=== PATIENT | female | born 1985 | race Caucasian/White ===

== ENCOUNTER → 2020-03-25 18:23 | Outpatient (BNVA) | payer OTHER, SELFPAY | PROVIDERS: Family Provider Family Medicine; Visit Provider Family Medicine | DX: Z20.828 Contact with and (suspected) exposure to other viral communicable diseases (principal) | CPT/HCPCS: 87635 ==

== ENCOUNTER 2021-04-12 12:25 | Outpatient (CLI) | payer OTHER, SELFPAY ==
[2021-04-12 12:46] VITALS: BP 128/84; PULSE 68; RESP 16; TEMP 36.6; O2SAT 98
[2021-04-12 13:28] VITALS: BP 108/72; PULSE 67; RESP 16; O2SAT 97
[2021-04-12 14:30] VITALS: BP 121/81; PULSE 63; RESP 16; TEMP 36.5; O2SAT 97
== END 2021-04-12 12:26 | disposition home or self-care (01) ==
LOC: OPS 12:28
PROVIDERS: Visit Provider Nurse Practitioner
DX: U07.1 COVID-19 (principal)
CPT/HCPCS: 96365

== ENCOUNTER → 2021-04-27 16:35 | Outpatient (BNVA) | payer OTHER, SELFPAY | PROVIDERS: Visit Provider Family Medicine | DX: Z00.00 Encounter for general adult medical examination without abnormal findings (principal); Z76.89 Persons encountering health services in other specified circumstances | CPT/HCPCS: 80053; 80061; 82306; 84443; 85025 ==

== ENCOUNTER → 2021-07-19 13:44 | Outpatient (BNVA) | payer OTHER, SELFPAY | PROVIDERS: Visit Provider Registered Nurse Neonatal Intensive Care | DX: Z20.822 Contact with and (suspected) exposure to COVID-19 (principal); Z20.828 Contact with and (suspected) exposure to other viral communicable diseases | CPT/HCPCS: 87635 ==

== ENCOUNTER → 2022-11-21 15:20 | Outpatient (BNVA) | payer OTHER, SELFPAY | PROVIDERS: PCP Family Medicine; Visit Provider Obstetrics & Gynecology | DX: Z12.4 Encounter for screening for malignant neoplasm of cervix (principal) | CPT/HCPCS: 87624 ==

== ENCOUNTER 2023-06-13 10:05 | Outpatient (CLI) | payer OTHER, SELFPAY ==
--- NOTE | 2023-06-13 10:08 | MM_ITS ---
WS: [id number] VIEWS: MLO and CC views both breasts. 3D digital tomosynthesis is also included in this exam. Baseline study Findings: There was no sign of mass, architectural distortion or suspicious calcification in either breast. The re are scattered areas of fibroglandular density Impression: MM/[place] [id number] BI-RADS: 2-Benign finding. FOLLOW-UP: 1 Year Follow-up This mammogram was also analyzed by the Computer Aided Detection System [employer].
== END 2023-06-13 10:06 | disposition home or self-care (01) ==
LOC: RAD 10:05
PROVIDERS: PCP Family Medicine; Visit Provider Obstetrics & Gynecology
DX: Z12.31 Encounter for screening mammogram for malignant neoplasm of breast (principal)
CPT/HCPCS: 77063; 77067

== ENCOUNTER → 2024-03-04 11:37 | Outpatient (BNVA) | payer OTHER, SELFPAY | PROVIDERS: PCP Family Medicine; Visit Provider Nurse Practitioner Women's Health | DX: Z12.4 Encounter for screening for malignant neoplasm of cervix (principal) | CPT/HCPCS: 87624 ==

== ENCOUNTER 2024-06-15 11:06 | Outpatient (CLI) | payer OTHER, SELFPAY ==
--- NOTE | 2024-06-15 | MM_ITS ---
WS: [id number] SCREENING DIGITAL BREAST TOMOSYNTHESIS MAMMOGRAM WITH CAD HISTORY: ANNUAL SCREENING COMPARISON: 06/13/2023 Bilateral CC and MLO with tomosynthesis and synthetic mammography submitted. Computer aided detection analyzed. Breast composition: There are scattered areas of fibroglandular density. New well-circumscribed mass measures 4 x 6 x 5 mm in the lateral mid LEFT breast near 3:00. No additional new mass or calcificati on. MM/MM scr tomosynthesis [id number] IMPRESSION: BI-RADS: 0 - Incomplete: Need additional imaging evaluation. FOLLOW UP: Need Additional Imaging LEFT breast: Spot compression views (CC and MLO). True ML. Ultrasound to follow if abnormality persists.
== END 2024-06-15 11:07 | disposition home or self-care (01) ==
PROVIDERS: PCP Family Medicine; Visit Provider Family Medicine
DX: Z12.31 Encounter for screening mammogram for malignant neoplasm of breast (principal); R92.323 Mammographic fibroglandular density, bilateral breasts; N63.23 Unspecified lump in the left breast, lower outer quadrant
CPT/HCPCS: 77063; 77067

== ENCOUNTER 2024-07-14 10:17 | Outpatient (CLI) | payer OTHER, SELFPAY ==
--- NOTE | 2024-07-14 10:21 | US_ITS ---
WS: [email or web address] ADDITIONAL VIEWS LEFT MAMMOGRAM with tomosynthesis. LEFT BREAST ULTRASOUND HISTORY: N64.9 - Disorder of breast, unspecified COMPARISON: 06/15/2024, 06/13/2023 LEFT MAMMOGRAM: Spot compression views and true ML with tomosynthesis and synthetic mammography. Spot compression views are obtained. Well-circumscribed mass is reidentified best seen on the lateral projection in the ML projection. Mass is in the lateral LEFT breast measuring 5 x 6 x 4 mm and near the 3:00 axis. LEFT BREAST ULTRASOUND 2-D and color Doppler imaging submitted. Simple cyst with well-circumscribed margins in the LEFT breast at 4:00, 5 cm from the nipple. Cyst me asures 0.7 x 0.3 x 0.8 cm. No additional abnormality in the lateral LEFT breast. US/US breast LT complete [id number] IMPRESSION: BI-RADS: 2- Benign FOLLOW UP: 1 Year Follow-up Mass in the LEFT breast corresponds to a benign simple cyst.
--- NOTE | 2024-07-14 10:30 | MM_ITS ---
WS: [email or web address] ADDITIONAL VIEWS LEFT MAMMOGRAM with tomosynthesis. LEFT BREAST ULTRASOUND HISTORY: N64.9 - Disorder of breast, unspecified COMPARISON: 06/15/2024, 06/13/2023 LEFT MAMMOGRAM: Spot compression views and true ML with tomosynthesis and synthetic mammography. Spot compression views are obtained. Well-circumscribed mass is reidentified best seen on the lateral projection in the ML projection. Mass is in the lateral LEFT breast measuring 5 x 6 x 4 mm and near the 3:00 axis. LEFT BREAST ULTRASOUND 2-D and color Doppler imaging submitted. Simple cyst with well-circumscribed margins in the LEFT breast at 4:00, 5 cm from the nipple. Cyst me asures 0.7 x 0.3 x 0.8 cm. No additional abnormality in the lateral LEFT breast. MM/MM diag LT tomosynthesis [id number] IMPRESSION: BI-RADS: 2- Benign FOLLOW UP: 1 Year Follow-up Mass in the LEFT breast corresponds to a benign simple cyst.
== END 2024-07-14 10:18 | disposition home or self-care (01) ==
LOC: RAD 10:19
PROVIDERS: PCP Family Medicine; Visit Provider Nurse Practitioner Women's Health
DX: R92.8 Other abnormal and inconclusive findings on diagnostic imaging of breast (principal); N64.9 Disorder of breast, unspecified; N60.02 Solitary cyst of left breast
CPT/HCPCS: 76641; 77061; G0279

== ENCOUNTER → 2024-11-13 11:43 | Outpatient (BNVA) | payer OTHER, SELFPAY | PROVIDERS: PCP Family Medicine; Visit Provider Nurse Practitioner | DX: Z00.00 Encounter for general adult medical examination without abnormal findings (principal) | CPT/HCPCS: 80053; 85025 ==

== ENCOUNTER 2025-01-10 11:32 | Emergency (ER) | payer OTHER, SELFPAY ==
--- OUTSIDE RECORDS SUMMARY | 2025-01-06 08:31 | XMS_ITS | Encounter Summary ---
Author Organization [facility] Address [address] [place] [address] Care Team Providers Care Steam And Power Superintendent Name Role Phone Unavailable Primary Care Provider Unavailabl e Reason for Visit * Auth/Cert (Routine) Specialty Diagnoses / Procedures Referred By Faith t Referred To Contact Perioperative Diagnoses Morbid (severe) obesity due to excess calories (CMS/HCC) Procedures VA LAPS GSTRC RSTRICTIV PX LONGITUDINAL GASTRECTOMY VA UNLISTED PROCEDURE ABDOMEN PERITONEUM & OMENTUM GASTRECTOMY LONGITUDINAL LAPAROSCOPIC WITH ON Q PAIN PUMP Nic Yanez MD [address] [place] [id number] Phone: tel: fax: [facility] Operating Room [address] [place] [id number] Phone: tel: fax: Referral ID Status Reason Start Date Expiration Date Visits Re quested Visits Authorized [id number] 1 1 Encounter Details Date Type Department Care Team (Latest Contact Info) Description 01/06/2025 8:31 AM CDT - 01/07/2025 3:08 PM CDT Hospital Encounter [facility] Surgical [address] [id number] Nic Yanez MD [address] [place] [phone] Obesity (BMI 35.0-39.9 without comorbidity) Discharge Disposition: Home or Self Care Social History Tobacco Use Types Packs/Day Years Used Date Smoking Tobacco: Never Smokeless Tobacco: Never Tobacco Cessation:Counseling Given: Not Answered Alcohol Use Standard Drinks/Week Comments Not Currently 0 (1 standard drink = 0.6 oz pur e alcohol) Feeling Safe Answer Date Recorded Are you in a relationship wi th someone who hurts you emotionally and/or physically? 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 Gender Identity Not on file Sexual Orientation Not on file documented as of this encounter Last Filed Vital Signs Vital Sign Reading Time Taken Comments Blood Pressure 119/82 01/07/2025 11:00 AM CDT Pulse 66 01/07/2025 11:00 AM CDT Temperature 36.5 C (97.7 F) 01/07/2025 11:00 AM CDT Respiratory Rate 18 01/07/2025 11:00 AM CDT Oxygen Saturation 100% 01/07/2025 11:00 AM CDT Inhaled Oxygen Concentration - - Weight 98.7 kg (217 lb 8 oz) 01/06/2025 2:46 PM CDT Height 162.6 cm (5' 4 ) 01/06/2025 2:46 PM CDT Body Mass Index 37.33 01/06/2025 2:46 PM CDT documented in this encounter Discharge Instructions * Discharge Instructions* Aisha Hayward DNP - 01/06/2025 3:59 PM CDT MEDICATIONS: Zofran Hycet Home Medications: Cetirizine (Zyrtec) 10 mg tablet - may crush, continue as needed Fluticasone Propionate (Flonase) 50 mcg/spry nasal inhaler suspension - nasal spray Do not start vitamins for one week. Start on day #7 when you start your full liquid diet. Start protein water on your first day home. Start protein shakes at the direction of your surgeon. Pain ball: Remove as instructed on SaturJanuary 09, [address] Yanez as scheduled. Follow up with your primary care provider in 5 days for continued medical management. NSAIDs: This includes all over the counter preparations containing a non- steroidal anti-inflammatory agent (i.e.: Motrin, Ibuprofen, Advil, Naprosyn, Aleve, Aspirin and Aspirin containing products, all combination products containing Ibuprofen or Naprosyn) Resume/take at the direction of your surgeon. SIGNS AND SYMPTOMS TO REPORT Contact your health care provider if you experience any of the following symptoms: fever greater than 100.4, redness from incision sites, or unrelieved nausea/vomiting. For Diabetic patients: Blood sugar consistently greater than 180 or less than 70. ACTIVITY Your activity level is: Per direction of surgeon. You may return to work/school once you follow up with your doctor. Weight restriction: less than [address] you are no longer taking pain medication. You may shower. Do not take any baths or submerge in water for 4 weeks or until instructed by your surgeon. DIET Your diet is: clear liquid, advance as instructed in your bariatric diet manual. WOUND CARE For your wound/incision: Shower daily. Notify Dr. Yanez if: There is redness, swelling, or increased pain at incision sites/wounds. Pus is coming from incision sites/wounds. You develop an unexplained oral temperature above 100.4?? F. You notice a foul smell coming from incision sites/wounds. You are unable to tolerate fluids. You have persistent nausea or vomiting. documented in this encounter Medications at Time of Discharge HYDROcodone-acet aminophen 2.5-108 mg/5 mL SolutionIndicati ons:Post-op pain Take 15 mL by mouth every 6 hours as needed for Pain, Severe. Max Daily Amount: 60 mL 300 mL 01/06/2025 ondansetron (ZOFRAN ODT) 4 mg Tablet, Rapid Dissolve Take 1 Tablet (4 mg) by mouth every 8 hours as needed for Nausea. Dissolve tablet on top of tongue, then swallow with saliva. 28 Tablet 01/07/2025 10:00 AM CDT 01/06/2025 cetirizine (ZyrTEC) 10 mg tablet Take 10 mg by mouth 1 time daily as needed for Allergies. fluticasone propionate (FLONASE) 50 mcg/spray [place], Suspension nasal inhaler Administer 2 Sprays in each nostril 1 time daily as needed for Rhinitis. documented as of this encounter Progress Notes * Zion Hunt RN - 01/07/2025 12:45 PM CDT Discharge instructions and contents of discharge education folder were reviewed and discussed with the patient and her sister. Included in that discussion were diet, activity, medications, incision care, removal of the on Q ball, and signs and symptoms of postoperative complications. Patient and her sister were given the opportunity to ask questions. Their questions were answered. * Chang Barry RN - 01/06/2025 8:49 AM CDT Patient has purple gown on. * Ailyn Tao PHARMACIST - 12/25/2024 3:38 PM CDT Bariatric Medication Review Per home medication list viewed 12-25-24 Cetirizine (Zyrtec) 10 mg tablet - may crush Fluticasone Propionate (Flonase) 50 mcg/spry nasal inhaler suspension - nasal spray R Abram Tao documented in this encounter H&P Notes * Nic Yanez MD - 01/06/2025 10:36 [place] [address] History and Physical Patient: Renay Stern : 1985 Date: 01/06/2025 HISTORY OF PRESENT ILLNESS: Patient is a 39 y.o. female scheduled for LVSG for Morbid Obesity. She was seen in the clinic and found to be an appropirate candidate for the procedure. The details of the preop discussion can be found in the clinic notes. Past Surgical History: Procedure Laterality Date HX SECTION x3 HX TUBAL LIGATION Past Medical History: Diagnosis Date Depression Medications Prior to Admission Medication Sig Dispense Refill Last Dose/Taking cetirizine (ZyrTEC) 10 mg tablet Take 10 mg by mouth 1 time daily as needed for Allergies. 01/06/2025Morning fluticasone propionate (FLONASE) 50 mcg/spray [place], Suspension nasal inhaler Administer 2 Sprays in each nostril 1 time daily as needed for Rhinitis. 01/06/2025 Morning No Known Allergies Social History Socioeconomic History Marital status: Spouse name: Not on file Number of children: Not on file Years of education: Not on file Highest education level: Not on file Occupational History Not on file Tobacco Use Smoking status: Never Smokeless tobacco: Never Vaping Use Vaping status: Never Used Substance and Sexual Activity Alcohol use: Not Currently Drug use: Not Currently Sexual activity: Not on file Other Topics Concern Not on file Social History Narrative Not on file Social Drivers of Health Food Insecurity: Not on file Transportation Needs: Not on file Feeling Safe: Not At Risk (01/06/2025) Feeling Safe Patient has indicated abuse: : No Housing Stability: Not on file No family history on file. REVIEW OF SYSTEMS: Per anesthesia notes PHYSICAL EXAM: Heart- no JVD Lungs- no increased work of breathing IMPRESSION: Obesity with comorbidities, good candidate for proposed procedure. PLAN: I discussed in depth with the patient her current clinical situation. Risks of the procedure were discussed in detail and the patient completed the online MOHAMUD program prior to today's procedure. She understands and wishes to proceed with the procedure. All of her questions were answered. Nic Yanez MD documented in this encounter Consult Notes * Aisha Hayward, MARVIN - 01/06/2025 3:53 PM CDTAssociated Order(s): IP CONSULT TO HOSPITALIST Hospitalist Consultation Note Patient Name: Renay Stern [id number] Primary Care Doctor: No primary care provider on file. Requesting Physician: Nic Yanez MD Date of Admission: 01/06/2025 Date of Service: 01/06/2025 Reason for Consultation: Status post laparoscopic vertical sleeve gastrectomy with placement of tunneled abdominal wall catheters x2 secondary to morbid obesity by Dr. Yanez. Hospitalist group was consulted for ongoing medical issues: Depression, postoperative nausea and vomiting, postoperative pain, history of seasonal allergies and general medical exam HPI: Patient is 39 y.o. female patient who is status post laparoscopic vertical sleeve gastrectomy with placement of tunneled abdominal wall catheters x2 secondary to morbid obesity by Dr. Yanez. Hospitalist group was consulted for ongoing medical issues: Depression, postoperative nausea and vomiting, pos toperative pain, history of seasonal allergies and general medical exam Seen while sitting on edge of bed. Family at bedside. Discussed health history and home medicationswith patient. Reports a history of seasonal allergies and uses Zyrtec and Flonase as needed. Reports history of depression that was situational as was overseas serving in the [employer]. Reports C- section x 3 along with a tubal in 2018. Denies any other medical needs or concerns at this time. Denies chest pain shortness of breath or GI upset. Denies tobacco drug and alcohol use. Past Medical History: Diagnosis Date Depression Past Surgical History: Procedure Laterality Date HX SECTION x3 HX TUBAL LIGATION [facility] PX LONGITUDINAL GASTRECTOMY N/A 01/06/2025 GASTRECTOMY LONGITUDINAL LAPAROSCOPIC WITH ON Q PAIN PUMP performed by Nic Yanez MD at [facility] Current Medications: Medications Prior to Admission Medication Sig Dispense Refill Last Dose/Taking cetirizine (ZyrTEC) 10 mg tablet Take 10 mg by mouth 1 time daily as needed for Allergies. 01/06/2025Morning fluticasone propionate (FLONASE) 50 mcg/spray [place], Suspension nasal inhaler Administer 2 Sprays in each nostril 1 time daily as needed for Rhinitis. 01/06/2025 Morning Medication Allergies:No Known Allergies No family history on file. Social History: Social History Tobacco Use Smoking status: Never Smokeless tobacco: Never Substance Use Topics Alcohol use: Not Currently ROS: Constitutional: denies: chills, fever, diaphoresis HEENT: denies: nasal drainage, nasal congestion dysphagia or sore throat Respiratory: denies: cough, or shortness of breath Cardiovascular: denies: chest pain Gastrointestinal/Abdominal: denies: nausea, vomiting. Reports: Abdominal pain 08/10 Genitourinary: denies: discharge, dysuria, frequency, hematuria, pain Musculoskeletal: denies: back pain, joint swelling, muscle pain Skin: denies: dryness, rash Neurological/Psych: denies: headache, numbness, tingling, weakness Physical Exam: BP 118/51 (BP Location: Right arm, Patient Position (BP): Supine) Pulse 83 Temp 97.7 ??F (36.5 ??C) (Oral) Resp 16 Ht 5' 4 (1.626 m) Wt 98.7 kg (217 lb 8 oz) LMP 12/21/2024 SpO2 99% BMI 37.33 kg/m?? Appearance: Morbidly obese, well-appearing, NAD HEENT: Normocephalic, atraumatic, PERRLA Neck: Supple, no lymphadenopathy, no JVD, full ROM Cardiovascular: Regular rate and rhythm, without murmurs, rubs or clicks Pulmonary: Respirations even and unlabored, lung sounds are clear bilaterally GI / : Abdomen soft, mild tenderness, non distended; abdominal incisions well approximated without erythema or drainage, tunneled abdominal wall catheters x2 and on-Q ball present and intact, bowelsounds hypoactive Extremities: No clubbing, cyanosis, or edema MS: Strength/ROM intact, no calf tenderness, SCDs intact Skin: Warm and dry, color normal Neurologic: Alert and oriented times 3 Data Base: Lab: Results for orders placed or performed during the hospital encounter of 01/06/25 (from the past 24 hours) HCG QUALITATIVE, URINE Result Value Ref Range HCG QUAL URINE Negative Negative COLOR UA Yellow Pale to Dark Yellow CLARITY UA Clear Clear Labs reviewed on chart by tag writer done prior to arrival Assessment:PLAN 1. Morbid obesity Status post laparoscopic vertical sleeve gastrectomy with placement of tunneled abdominal wall catheters x2 secondary to morbid obesity by Dr. Yanez. IV fluids/antiemetics/pain control using pain scale/incentive spirometer encourage frequently tolerating ice chips without difficulty/tolerated procedure well 2. DVT/GI prophylaxis Heparin/SCDs/H2 aye 3. Depression No concerns voiced Currently not on any depression medication as depression is considered situational, has resolved 4. Postop nausea/vomiting Administer antiemetic as ordered Continue to monitor 5. Postop pain Administer pain medication as ordered Continue to monitor 6. History of seasonal allergies No complaints Reports home medication of Zyrtec and Flonase Continue Zyrtec and Flonase after discharge as needed 7. General Medical exam As charted above This patient was discussed with Dr. Rubin and he agrees with the above plan. More than 28 minutes spent in the care of the patient today; more than 50% of time was spent in discussion of plan of care, going over lab and test results, expected course of disease, prognosis, counselling, discharge planning, and coordination of care. [facility] We will gladly follow the patient throughout their stay. Aisha Hayward DNP This note was transcribed using Speech Recognition software. May contain unintended grammar and spelling errors. If there are any questions or major errors, please contact me. Cosigned by Ezio Rubin MD at 01/06/2025 6:00 PM CDT documented in this encounter OR Notes * Operative Report - Nic Yanez MD - 01/06/2025 11:47 AM CDT Renay Stern [id number] 01/06/2025 PRE OP DIAGNOSES: Morbid obesity with comorbidities POST OP DIAGNOSES: Morbid obesity with comorbidities INDICATION FOR PROCEDURE: This patient is a pleasant 39 y.o. year-old female suffering from morbid obesity and its comorbidities. After being seen in the clinic, she was found to be an appropriate candidate for a laparoscopicvertical sleeve gastrectomy. OPERATIONS PERFORMED: Laparoscopic vertical sleeve gastrectomy Laparoscopic placement of tunneled abdominal wall catheters x2 SURGEON: Nic Yanez MD NETTING INSPECTOR: None ANESTHESIA: GETA ESTIMATED BLOOD LOSS IN MLS: 50 cc COMPLICATIONS: None SPECIMEN: None PREOPERATIVE NOTE: The contemplated operative procedure, risks, benefits and alternatives to this procedure have been discussed with this patient and/or legal videotape sales representative. The patient and/or legal videotape sales representative acknowledge(s) understanding of the above and consent(s) to the procedure. OPERATIVE FINDINGS: Procedure performed laparoscopically as anticipated preoperatively. No evidence of kinking or twisting of the stomach and there appeared to be no evidence of ongoing oozing or bleeding at the conclusion of the case. OPERATIVE PROCEDURE: The patient was given intravenous antibiotics, sequential stockings, subcutaneous heparin in the preoperative area. After informed consent, the patient was transferred to the operating room, placed in a supine position, and underwent general anesthesia. An oral gastric calibration tube was placed. The abdomen was prepped and draped in the usual sterile fashion using ChloraPrep. Next a timeout wasobtained that revealed the correct patient, position, and laterality of the procedure. The procedure began with entry into the abdominal cavity using an opti-View trocar just to the patient's left of the umbilicus. Pneumoperitoneum thereafter was achieved. A circumferential view of theabdomen revealed no evidence of hepatic or pelvic pathology. Next a right upper quadrant and right periumbilical port were placed under direct laparoscopic vision. The liver was retracted manually throughout the case and the patient was positioned in reverse Trendelenburg position. The greater curvature was devascularized with the ultrasonic dissector and extended to the region of the spleen. The short gastric vessels were carefully taken down as dissection continued to fully mobilize the fundus and the angle of His. Posterior attachments were freed up, the dissection was continued until the majority of the left diaphragmatic santana was well visualized. The pylorus was then identified and marked approximately 4 cm proximally. The greater curvature dissection was extended distally to that area. The sleeve dissection was completed and inspected and found to be hemostatic. Next the gastric calibration tube was advanced under direct visualization into the antrum. The stomach was then divided using the linear stapler with Seam Guard reinforcements. Care was taken near the incisura to minimize encroachment, and the final staple load was fired approximately 1 cm away from the esophagus, to minimize injury to the esophagus. There was a technically good staple line with good hemostasis. The gastric calibration tube was slowly withdrawn, and there was no twisting or kinking of the gastric sleeve. The patient was flattened. There remained good hemostasis. As a separate procedure, the tunneled abdominal wall introducer was placed through a separate incision in the xiphoid region. It was tunneled through the subcutaneous fat, the abdominal wall fascia, into the preperitoneal plane along the right subcostal margin. A catheter was placed, the sheath wasremoved, and the catheter was irrigated to assure its patency. A second tunneled abdominal wall catheter was placed through a separate incision in the subxiphoid region. It was tunneled through the subcutaneous fat, through the abdominal wall fascia into the preperitoneal plane along the left subcostal margin. A catheter was placed, the sheath was removed, and the catheter was irrigated to assureits patency. Both catheters had good patency, they were secured to the skin with Dermabond, Steri-Strips, and Tegaderm. Both catheters were placed under direct laparoscopic visualization. Next, The remnant stomach was then removed under direct vision. The removed stomach was inspected and found to be without gross abnormality. There was no leakage or spillage within the abdomen. The specimen delivery site was closed with an 0 Vicryl suture using a suture passer. Then the pneumoperitoneum was released, as the trocars were removed, and there was no bleeding. The wound was irrigated, there was good hemostasis, and the skin edges were approximated using interrupted subcutaneous subcuticular 4-0 PDS suture. Dermabond was applied. The patient tolerated the procedure well, there were no complications, the patient was transferred to the recovery room awake and in stable condition. * Esme-OP - Leena Martin RN - 01/06/2025 10:42 AM CDT IDENTIFIED VERBALLY/WRIST BAND AND PER DATE. PROCEDURE VERIFIED AND CONSENT NOTED. SEEN PER SURGEON. TO OR PER CART. TRANSFERRED TO OR TABLE PER SELF. POSITIONED FOR SAFETY AND COMFORT. TIME OUT AND FIRE SAFETY DONE. * Esme-OP - Nissa Mobley RN - 12/25/2024 10:18 AM CDT THINGS TO REMEMBER ABOUT YOUR PROCEDURE ARRIVAL DATE AND TIME: 01-06-25 at time given by md office ANTIBACTERIAL SOAP SHOWER one the evening before procedure and one the morning of procedure are ideal to help reduce the risk of post-operative infections. Apply the soap from the neck down. DIET/FLUID INSTRUCTIONS: FOLLOW CLEAR LIQUID DIET INSTRUCTED BY BARIATRIC OFFICE. NOTHING TO DRINK AFTER MIDNIGHT! FAILURE TO FOLLOW COULD MEAN CANCELLATION. No Gum, candy or tobacco/vape products day of procedure! Per anesthesia protocol, pt. instructed not to consume medical or recreational marijuana, CBD or THC containing products for 24 hours prior to procedure. Procedure will be cancelled by anesthesia, ifproducts are consumed day of procedure. MORNING OF PROCEDURE Enter at the main entrance at [facility] and go to the registration desk. They will then escort you to the appropriate location. Wear loose fitting clothes the day of surgery. Do not wear contact lenses. No jewelry or body piercings. Bring overnight bag but leave in the car. Do not use adhesive on your dentures. Do not wear makeup or false eyelashes per anesthesia Leave valuables at home (money, credit cards and jewelry) Bring a copy of any legal papers (guardianship papers, Durable Power of Plastics Fabricator), photo ID and insurance cards DISCHARGE If you are having outpatient procedure, surgery or a cardiac catheterization procedure a responsible adult 18 and over must be available to drive you home and stay with you for 24 hours afterwards. (please arrange this prior to admission) MEDICATIONS Pre-Surgery Instructions: follow md instructions Medication Instructions cetirizine (ZyrTEC) 10 mg tablet May take am of surgery if needed fluticasone propionate (FLONASE) 50 mcg/spray [place], Suspension nasal inhaler May use am of surgeryif needed IF YOU HAVE QUESTIONS: Call [phone] from 8:00 a.m. To 4:30 p.m. Saturday through Saturday. If you need to cancel day of procedure or have questions day of procedure, you can call [phone], 05:30 am-2:00 pm Saturday through Saturday (The above instructions have been discussed with the patient or their videotape sales representative and they have voiced understanding) documented in this encounter Miscellaneous Notes * Care Plan - Rebecca Juan RN - 01/07/2025 10:10 AM CDT Problem: Discharge Planning Goal: Identify discharge needs upon admission and through discharge Description: Outcome: Progressing Clinical documentation reviewed. Comprehensive Discharge Planning Risk Assessment was completed. Documentation Related to CDPA score CDPA Documentation Ambulation: independent Transferring: independent Toileting: independent Bathing: independent Dressing: independent Eating: independent Communication: understands/communicates w/o difficulty Weight-Bearing Status: no weight-bearing restrictions Living Arrangements: Lives with spouse/significant other Total Score of 9 or below does not identify immediate needs for discharge. CDPA Risk Score Total Score: 0 Criteria that do not apply: Self-reported walking limitation Disability Age Prior Living Status Please place consult if needs for discharge are identified. Care Management will continue to follow for discharge planning. Post op day 1 Laparoscopic vertical sleeve gastrectomy Laparoscopic placement of tunneled abdominal wall catheters x2. Self pay: received elective surgery and made payment arrangement prior to the admission/surgery. CHARIS Brian, RN, Probation And Parole Officer [facility] Care Management * Care Plan - Francisca Hi RN - 01/07/2025 6:44 AM CDT Shift Summary Acetaminophen was administered at 11:13 PM. 200 mL of oral intake was recorded at 11:49 PM. No pain or discomfort was reported throughout the shift. Overall, the patient maintained a stable condition with no significant changes in comfort level. Verbalizes/displays acceptable comfort level or baseline comfort level: No pain or discomfort was reported throughout the shift, and acetaminophen was administered at 11:13 PM. Achieve optimal gastrointestinal function by discharge or maintain baseline function: Intermittent nausea and gas discomfort were noted initially, but passing flatus was reported later in the shift. * Treatment Plan - Francisca Hi RN - 01/07/2025 6:21 AM CDT MW EUNICE Adult Intravascular Catheter Flush Protocol [facility] Approved by: [facility] Chief Nursing Officers, [facility] Medical Staff Services, [facility] Nursing Practice [place], [facility] Pharmacy and Therapeutics Committee Approval Date: 12/17/2024 Nursing Orders: Peripheral IV and Midlines Sodium chloride 0.9% (normal saline) flush 10 mL every 12 hours when locked or not in use Sodium chloride 0.9% (normal saline) flush 10 mL PRN before and after medication administration or to verify line patency Flush Bag Sodium chloride 0.9% (normal saline) to administer 25 mL with IVPB at the IVPB rate PRN Flush Bag Dextrose 5% (D5W) (for drugs incompatible with normal saline) to administer 25 mL wi IVPB at the IVPB rate PRN. PICC, Implanted PORT, or Central Lines (CVC, Sheath/Introducer, 3rd lumen of Hemodialysis catheter) when in use or for locking Sodium chloride 0.9% (normal saline) flush 10 mL per lumen every 12 hours when locked or not in use Sodium chloride 0.9% (normal saline) flush 10 mL per lumen after each use and PRN before and after medication administration or to verify line patency Flush Bag Sodium chloride 0.9% (normal saline) to administer 25 mL with IVPB at the IVPB rate PRN Flush Bag Dextrose 5% (D5W) (for drugs incompatible with normal saline) to administer 25 mL with IVPB at the IVPB rate PRN Transducers - Hemodynamic Pressure Monitoring Arterial Catheter, Pulmonary Artery Catheter, Central Venous Pressure, Intra-Aortic Balloon Pump Sodium chloride 0.9% (normal saline) to infuse continuously at 3 mL/hr via pressure bag @ 300mmHg * Treatment Plan - Chio Castañeda RN - 01/06/2025 8:39 PM CDT Initiate this protocol in place of provider order or pathway order for vital sign frequency while patient is admitted to Medical/Surgical unit. Protocol is active in Medical/Surgical Units only. Exclusions: Post-operative/procedure vitals signs Sepsis Bundle or Code Hour One Blood administration and vital signs MACHINE FEEDER medication administration Per nurse's discretion based on patient's condition. Clinical [place] Withdrawal Assessment (CIWA) patients Clinical Opiate Withdrawal Scale Rule out CVA patients Nursing Communication: If NEWS2 score is less than or equal to 4, two hours prior to 0001, nursing will hold the standard vital signs between 2300 and 0400. Standard Vital Signs will resume at 0400. * Care Plan - Adela You RN - 01/06/2025 3:38 PM CDT Shift Summary Abnormal blood pressure and temperature were recorded in the late morning, but both improved by early afternoon. Continuous nausea and emesis were noted in the early afternoon, with antiemetic administration leading to some improvement. Pain in the abdomen region decreased after interventions, with the patient eventually denying pain or discomfort. The patient was unable to eat and experienced intermittent nausea and abdominal pain by the end of the shift. Overall, the patient's vitals showed improvement, but gastrointestinal symptoms persisted. Verbalizes/displays acceptable comfort level or baseline comfort level: Pain in the abdomen region decreased from a rating of 5 to 3 after interventions including warm application and medication, with the patient eventually denying pain or discomfort. Achieve optimal gastrointestinal function by discharge or maintain baseline function: Nausea was continuous but improved after administration of antiemetics, although intermittent nausea and abdominal pain persisted. * Care Plan - Azalea Hernandez RN - 01/06/2025 1:03 PM CDT Potential for nausea and vomiting related to surgical intervention and/or anesthesia. Interventions: Assess for nausea, vomiting.Administer measures to reduce and comfort pt (ie: encourage slow deep breathing, cool cloth to forehead, gradual position changes). Administer medication ifordered by physician. Expected outcome:Verbalization of decreased nausea and reduced or absent episodes of vomiting. Outcome met: Pt denies nausea. * Care Plan - Chang Barry RN - 01/06/2025 8:49 AM CDT Knowledge deficit related to procedure/environment Interventions: Assess learning needs and willingness to learn; give clear, concise explanations of the environment and sequence of events surrounding the periop experience; address patient/family questions and concerns; provide teaching as indicated, provide teaching related to postoperative pain assessment utilizing pain scales Expected Outcome: Patient verbalizes or demonstrates awareness/understanding of surgery and perioperative experience Outcome Met: Discussed pre op protocols, questions answered, verbalized understanding. documented in this encounter Plan of Treatment Not on file documented as of this encounter Procedures Procedure Name Priority Date/Time Associated Diagnosis Comments CBC WITHOUT DIFFERENTIAL Routine 01/07/2025 5:59 AM CDT BASIC METABOLIC PANEL Routine 01/07/2025 5:59 AM CDT VA LAPS GSTRC RSTRICTIV PX LONGITUDINAL GASTRECTOMY 01/06/2025 10:30 AM CDT Morbid (severe) obesity due to excess calories ([facility]) Case Notes ON Q PAIN PUMP CODE 18 [id number] HCG QUALITATIVE, URINE Stat 01/06/2025 8:57 AM CDT documented in this encounter Results * (ABNORMAL) BASIC METABOLIC PANEL (01/07/2025 5:59 AM CDT) SODIUM 137 136 - 145 mmol/L 01/07/2025 7:06 AM T [facility] [place] POTASSIUM 3.8 3.5 - 5.1 mmol/L 01/07/2025 7:06 AM T [facility] [place] CHLORIDE 105 98 - 107 mmol/L 01/07/2025 7:06 AM T [facility] [place] CO2 17(L) 22 - 29 mmol/L 01/07/2025 7:06 AM T [facility] [place] CALCIUM 8.5(L) 8.6 - 10.0 mg/dL 01/07/2025 7:06 AM T [facility] [place] BUN 4(L) 6 - 20 mg/dL 01/07/2025 7:06 AM T [facility] [place] CREATININE 0.67 0.51 - 0.95 mg/dL 01/07/2025 7:06 AM T [facility] [place] GLUCOSE 129(H) 74 - 99 mg/dL 01/07/2025 7:06 AM [facility] GFR >60 >=60 mL/min/1.7 3 sq meter 01/07/2025 7:06 AM [facility] Comment:eGFR calculated with 2020 CKD-EPI equation. Vegetarian diet, extremely high or low muscle mass, and may affect results. Cystatin C with Glomerular Filtration Rate is a suitable alternative for these patients. ANION GAP 15 5 - 15 mmol/L 01/07/2025 7:06 AM [facility] Blood Venipuncture / Unknown 01/07/2025 5:59 AM CDT 01/07/2025 6:37 AM CDT us Nic Yanez MD CHEMISTRY ORDERABLES Final Resul t [facility] CLIA # [id number] [facility] [address] [place] [address] * (ABNORMAL) CBC WITHOUT DIFFERENTIAL (01/07/2025 5:59 AM CDT) WBC 10.0 4.0 - 11.0 K/uL 01/07/2025 6:30 AM [facility] RBC 4.20 4.20 - 5.40 M/uL 01/07/2025 6:30 AM [facility] HEMOGLOBIN 11.7(L) 11.9 - 15.1 g/dL 01/07/2025 6:30 AM [facility] HEMATOCRIT 36.0(L) 38.0 - 47.0 % 01/07/2025 6:30 AM [facility] MCV 85.7 80.0 - 98.0 fL 01/07/2025 6:30 AM [facility] MCH 27.9 26.0 - 34.0 pg 01/07/2025 6:30 AM [facility] MCHC 32.5 31.0 - 37.0 g/dL 01/07/2025 6:30 AM [facility] PLATELETS 224 150 - 400 K/uL 01/07/2025 6:30 AM CDT [facility] [place] MPV 11.5 8.5 - 12.5 fL 01/07/2025 6:30 AM CDT [facility] [place] RDW 13.4 11.5 - 14.5 % 01/07/2025 6:30 AM CDT [facility] [place] RDW-STDEV 41.9 34.0 - 54.0 fL 01/07/2025 6:30 AM CDT [facility] [place] Blood Venipuncture / Unknown 01/07/2025 5:59 AM CDT 01/07/2025 6:27 AM CDT Nic Yanez MD HEMATOLOGY ORDERABLES Final Resu lt [facility] [place] CLIA # [id number] [address] [place] [address] * HCG QUALITATIVE, URINE (01/06/2025 8:57 AM CDT) HCG QUAL URINE Negative Negative 01/06/2025 9:06 AM CDT [facility] [place] COLOR UA Yellow Pale to Dark Yellow 01/06/2025 9:06 AM CDT [facility] [place] CLARITY UA Clear Clear 01/06/2025 9:06 AM CDT [facility] [place] Urine URINE SPECIMEN OBTAINED BY CLEAN CATCH PROCEDURE / Unknown Collection / Unknown 01/06/2025 8:57 AM CDT 01/06/2025 9:02 AM CDT Narrative [facility] [place] - 01/06/2025 9:06 AM CDT hCG sensitive to as little as 20 mIU/mL for urine Nic Yanez MD URINE ORDERABLES Final Result [facility] [employer] [facility] [place] CLIA # [id number] [address] [place] [address] documented in this encounter Visit Diagnoses Diagnosis Obesity (BMI 35.0-39.9 without comorbidity)- Primary Obesity, unspecified Post-op pain Other acute postoperative pain General medical exam Unspecified general medical examination Depression Depressive disorder, not elsewhere classified Postoperative nausea and vomiting Nausea with vomiting Postoperative pain Other acute postoperative pain History of seasonal allergies Other allergy, other than to medicinal agents documented in this encounter Administered Medications Inactive Administered Medications - up to 3 most recent administrations Medication Order MAR Action Action Date Dose Rate Site acetaminophen (OFIRMEV) 10 mg/mL injection 1,000 mg 1,000 mg, IV, ONE TIME ONLY, 1 dose, On Sat01/06/25 at 2300, Routine, Post-op - Floor New 01/06/2025 11:13 PM CDT 1,000 mg 400 mL/hr acetaminophen (OFIRMEV) 10 mg/mL injection 1,000 mg 1,000 mg, IV, ONE TIME ONLY, 1 dose, On Sat01/06/25 at 1700, Routine, Post-op - Floor 01/06/2025 5:05 PM CDT 1,000 mg 400 mL/hr BUPivacaine PF (SENSORCAINE MPF) 5 mg/mL (0.5%) 270 mL single fixed rate On-Q pump Infiltration, CONTINUOUS, Starting on Sat01/06/25 at 1030, Until Sat01/07/25 at 1723, 270 mL, Routine, Pre-op, PUMP USE: Incisional Infiltration, FILL CAPACITY: 270-335 mL, LUMEN QTY: Dual Lumen, RATE: ALL OPTIONS EXCEED MAX RECOMMENDED RATE: EXCEED MAX RATE, SPECIFY RATE: 2 mL/hr/lumen (4 mL/hr total) 01/06/2025 12:00 PM CDT 4 mL/hr 4 mL/hr ceFAZolin (ANCEF,KEFZOL) 2,000 mg in sodium chloride 0.9% 50 mL IVPB (MBP) 2,000 mg, IV, POST-PROCEDURE Q 8 HOURS, 2 doses, First dose on Sat01/06/25 at 1845, Last dose on Sat01/07/25 at 0245, Routine, Post-op - Floor, Antibiotic Indication: Surgical prophylaxis New 01/07/2025 2:15 AM CDT 2,000 mg 118 mL/hr 01/06/2025 6:04 PM CDT 2,000 mg 118 mL/hr diphenhydrAMINE (BENADRYL) injection 12.5 mg 12.5 mg, IV, POST-PROCEDURE ONCE PRN, 1 dose, Starting on Sat01/06/25 at 1000, Until Sat01/06/25 at 1338, Nausea/Emesis, Routine, PACU Given 01/06/2025 1:38 PM CDT 12.5 mg famotidine PF (PEPCID) 20 mg/2 mL injection 20 mg 20 mg, IV, PRE-PROCEDURE ONCE, 1 dose, Starting on Sat01/06/25 at 0837, Until Sat01/06/25 at 0920, Stat, Pre-op Given 01/06/2025 9:20 AM CDT 20 mg famotidine PF (PEPCID) 20 mg/2 mL injection 20 mg 20 mg, IV, TWO TIMES DAILY, First dose on Sat01/06/25 at 2100, Until Discontinued, Routine, Post-op - Floor Given 01/07/2025 8:26 AM CDT 20 mg Given 01/06/2025 8:30 PM CDT 20 mg heparin injection 5,000 Units 5,000 Units, subCUT, PRE-PROCEDURE ONCE, 1 dose, Starting on Sat01/06/25 at 0837, Until Sat01/06/25 at 0859, Stat, Pre-op Given 01/06/2025 8:59 AM CDT 5,000 Units Abdomen, Right Lower Quadrant heparin injection 5,000 Units 5,000 Units, subCUT, EVERY 8 HOURS, First dose on Pina 01/07/25 at 0230, Until Discontinued, Routine, Post-op - Floor Given 01/07/2025 4:33 AM CDT 5,000 Units Abdominal Tissue lactated ringers bolus solution 2,000 mL 2,000 mL, IV, ONE TIME ONLY, 1 dose, On Sat01/06/25 at 0845, at 2,000 mL/hr, Administer over 60 Minutes, Stat, Pre-op New Bag 01/06/2025 9:28 AM CDT 2,000 mL 2000 mL/hr metoclopramide (REGLAN) 5 mg/mL injection 10 mg 10 mg, IV, EVERY 6 HOURS PRN, Starting on Sat01/06/25 at 1348, Until [place] 01/07/25 at 1723, Nausea/Emesis, Routine, Post-op - Floor Given 01/06/2025 1:52 PM CDT 10 mg metroNIDAZOLE (FLAGYL) IVPB 500 mg 500 mg, IV, POST-PROCEDURE Q 8 HOURS, 2 doses, First dose on Sat01/06/25 at 1845, Last dose on Sat01/07/25 at 0245, Routine, Post-op - Floor, Antibiotic Indication: Surgical prophylaxis New 01/07/2025 2:47 AM CDT 500 mg 100 mL/hr 01/06/2025 6:49 PM CDT 500 mg 100 mL/hr naloxone (NARCAN) 0.4 mg/mL injection 0.1-0.4 mg 0.1-0.4 mg, IV, SEE ADMIN INSTRUCTIONS, Starting on Sat01/06/25 at 0958, Until Sat01/07/25 at 1723, Routine, PACU ondansetron (ZOFRAN) 4 mg/2 mL injection 4 mg 4 mg, IV, EVERY 6 HOURS PRN, Starting on Sat01/06/25 at 1435, Until Sat01/07/25 at 1723, Nausea/Emesis, Routine, Post-op - Floor Given 01/07/2025 1:29 PM CDT 4 mg Given 01/07/2025 7:42 AM CDT 4 mg Given 01/06/2025 5:05 PM CDT 4 mg potassium CHLORIDE 20 mEq in dextrose 5 % - sodium chloride 0.45 % 1,000 mL infusion IV, at 150 mL/hr, CONTINUOUS, Starting on Sat01/06/25 at 1445, Until Sat01/07/25 at 1723, Routine, Post-op - Floor New 01/07/2025 7:37 AM CDT 150 mL/hr 01/06/2025 11:11 PM CDT 150 mL/hr 01/06/2025 2:44 PM CDT 150 mL/hr pyridoxine (VITAMIN B6) tablet 50 mg 50 mg, Oral, PRE-PROCEDURE ONCE, 1 dose, Starting on Sat01/06/25 at 1007, Until Sat01/06/25 at 1008, Routine Given 01/06/2025 10:08 AM CDT 50 mg scopolamine (TRANSDERM-SCOP) 1 mg/72 hr transdermal patch 1 Patch 1 Patch, Transdermal, PRE-PROCEDURE ONCE, 1 dose, Starting on Sat01/06/25 at 0837, Until [place] 01/07/25 at 1723, Stat, Pre-op Applied 01/06/2025 8:58 AM CDT 1 Patch Ear, Right documented in this encounter Active and Recently Administered Medications Times are shown in CDT. Scheduled Medication Order 01/05/2025 01/06/2025 01/07/2025 acetaminophen (OFIRMEV) 10 mg/mL injection 1,000 mg (COMPLETED) 1,000 mg, IV, ONE TIME ONLY, 1 dose, On Sat01/06/25 at 2300, Routine, Post-op - Floor 2313 (New Bag - Provider: Kami Watkins, ASHLIE)2328 (Stopped - Provider: Kami Watkins RN) acetaminophen (OFIRMEV) 10 mg/mL injection 1,000 mg (COMPLETED) 1,000 mg, IV, ONE TIME ONLY, 1 dose, On Sat01/06/25 at 1700, Routine, Post-op - Floor 1705 (New Bag - Provider: Adela You RN)1720 (Stopped - Provider: Adela You RN) ceFAZolin (ANCEF,KEFZOL) 2,000 mg in sodium chloride 0.9% 50 mL IVPB (MBP) (COMPLETED)(Linked Group 1) 2,000 mg, IV, POST-PROCEDURE Q 8 HOURS, 2 doses, First dose on Sat01/06/25 at 1845, Last dose on Pina 01/07/25 at 0245, Routine, Post-op - Floor, Antibiotic Indication: Surgical prophylaxis 1804 (New Bag - Provider: Adela You RN)1834 (Stopped - Provider: Adela You RN) 0215 (New Bag - Provider: Francisca Hi, ASHLIE)0245 (Stopped - Provider: Francisca Hi, ASHLIE) ceFAZolin (ANCEF,KEFZOL) vial 2,000 mg (COMPLETED) 2,000 mg (2 Gram), IV, PRE-PROCEDURE ONCE, 1 dose, Starting on Sat01/06/25 at 0837, Until Sat01/06/25 at 1059, Stat, Pre-op, Antibiotic Indication: Surgical prophylaxis 1054 (Given - Provider: Aby Suarez CRNA)1059 (Stopped - Provider: Aby Suarez CRNA) famotidine PF (PEPCID) 20 mg/2 mL injection 20 mg (COMPLETED) 20 mg, IV, PRE-PROCEDURE ONCE, 1 dose, Starting on Sat01/06/25 at 0837, Until Sat01/06/25 at 0920, Stat, Pre-op 0920 (Given - Provider: Chang Barry RN) famotidine PF (PEPCID) 20 mg/2 mL injection 20 mg 20 mg, IV, TWO TIMES DAILY, First dose on Sat01/06/25 at 2100, Until Discontinued, Routine, Post-op - Floor 2030 (Given - Provider: Kami Watkins, ASHLIE) 0826 (Given - Provider: Niki Bautista, ASHLIE) heparin injection 5,000 Units (COMPLETED) 5,000 Units, subCUT, PRE-PROCEDURE ONCE, 1 dose, Starting on Sat01/06/25 at 0837, Until Sat01/06/25 at 0859, Stat, Pre-op 0859 (Given - Provider: Chang Barry RN) heparin injection 5,000 Units 5,000 Units, subCUT, EVERY 8 HOURS, First dose on Sat01/07/25 at 0230, Until Discontinued, Routine, Post-op - Floor 0433 (Given - Provid er: Francisca Hi RN)1300 (Refused - Provider: Niki Bautista RN) lactated ringers bolus solution 2,000 mL (COMPLETED) 2,000 mL, IV, ONE TIME ONLY, 1 dose, On Sat01/06/25 at 0845, at 2,000 mL/hr, Administer over 60 Minutes, Stat, Pre-op 0928 (New Bag - Provider: Chang Barry RN)1028 (Stopped - Provider: Azalea Hernandez RN) metroNIDAZOLE (FLAGYL) IVPB 500 mg (COMPLETED) 500 mg, IV, PRE-PROCEDURE ONCE, 1 dose, Starting on Sat01/06/25 at 0837, Until Sat01/06/25 at 1150, Stat, Pre-op, Antibiotic Indication: Surgical prophylaxis 1050 (Given - Provider: Aby Suarez CRNA)1150 (Stopped - Provider: Aby Suarez CRNA) metroNIDAZOLE (FLAGYL) IVPB 500 mg (COMPLETED)(Linked Group 1) 500 mg, IV, POST-PROCEDURE Q 8 HOURS, 2 doses, First dose on Sat01/06/25 at 1845, Last dose on Sat01/07/25 at 0245, Routine, Post-op - Floor, Antibiotic Indication: Surgical prophylaxis 1848 (New Bag - Provider: Adela You RN)1948 (Stopped - Provider: Kami Watkins, ASHLIE) 024 (New Bag - Provider: Francisca Hi, ASHLIE)0347 (Stopped - Provider: Francisca Hi, ASHLIE) naloxone (NARCAN) 0.4 mg/mL injection 0.1-0.4 mg 0.1-0.4 mg, IV, SEE ADMIN INSTRUCTIONS, Starting on Sat01/06/25 at 0958, Until Pina 01/07/25 at 1723, Routine, PACU pyridoxine (VITAMIN B6) tablet 50 mg (COMPLETED) 50 mg, Oral, PRE-PROCEDURE ONCE, 1 dose, Starting on Sat01/06/25 at 1007, Until Sat01/06/25 at 1008, Routine 1008 (Given - Provider: Golden Valencia MD)1015 (Canceled Entry - Provider: Azalea Hernandez RN) scopolamine (TRANSDERM-SCOP) 1 mg/72 hr transdermal patch 1 Patch 1 Patch, Transdermal, PRE-PROCEDURE ONCE, 1 dose, Starting on Sat01/06/25 at 0837, Until Pina 01/07/25 at 1723, Stat, Pre-op 0858 (Applied - Provider: Chang Barry RN) 1508 (Due: Removed - Provider: PROVIDER, DISCHARGE PATIENT - Comment: Time automatically adjusted from order being discontinued) Continuous Medication Order 01/05/2025 01/06/2025 01/07/2025 BUPivacaine PF (SENSORCAINE MPF) 5 mg/mL (0.5%) 270 mL single fixed rate On-Q pump Infiltration, CONTINUOUS, Starting on Sat01/06/25 at 1030, Until Pina 01/07/25 at 1723, 270 mL, Routine, Pre-op, PUMP USE: Incisional Infiltration, FILL CAPACITY: 270-335 mL, LUMEN QTY: Dual Lumen, RATE: ALL OPTIONS EXCEED MAX RECOMMENDED RATE: EXCEED MAX RATE, SPECIFY RATE: 2 mL/hr/lumen (4 mL/hr total) 1200 (New Bag - Provider: Azalea Hernandez RN) 1723 (Due: Order Ending - Provider: PROVIDER, DISCHARGE PATIENT - Comment: [Order ends at this time. Document the following action when infusion is complete: Stopped]) lactated ringers infusion (CANCELED) IV, at 125 mL/hr, PRE-PROCEDURE CONTINUOUS, Starting on Sat01/06/25 at 0845, Until Sat01/06/25 at 1435, Stat, Pre-op 1042 (New Bag - Provider: Aby Suarez CRNA)1151 (New Bag - Provider: Aby Suarez CRNA - Comment: bag 3)1156 (Fluid Volume - Provider: Aby Suarez CRNA)1430 (Stopped - Provider: Azalea Hernandez, RN) potassium CHLORIDE 20 mEq in dextrose 5 % - sodium chloride 0.45 % 1,000 mL infusion IV, at 150 mL/hr, CONTINUOUS, Starting on Sat01/06/25 at 1445, Until Pina 01/07/25 at 1723, Routine, Post-op - Floor 1444 (New Bag - Provider: Andra Costa RN)2311 (New Bag - Provider: Kami Watknis RN) 0737 (New Bag - Provider: Niki Bautista, ASHLIE)1723 (Due: Order Ending - Provider: PROVIDER, DISCHARGE PATIENT - Comment: [Order ends at this time. Document the following action when infusion is complete: Stopped]) PRN Medication Order 01/05/2025 01/06/2025 01/07/2025 BUPivacaine PF (SENSORCAINE MPF) 5 mg/mL (0.5%) injection (CANCELED) INTRA-PROCEDURE PRN, Starting on Sat01/06/25 at 1119, Until Sat01/06/25 at 1157, Routine, Intra-op 1119 (Given - Provider: Nic Yanez MD) diphenhydrAMINE (BENADRYL) injection 12.5 mg (COMPLETED) 12.5 mg, IV, POST-PROCEDURE ONCE PRN, 1 dose, Starting on Sat01/06/25 at 1000, Until Sat01/06/25 at 1338, Nausea/Emesis, Routine, PACU 1338 (Given - Provider: Azalea Hernandez, ASHLIE) HYDROcodone-acetaminophen 2.5-108 mg/5 mL oral solution 15 mL 15 mL (7.5 mg), Oral, EVERY 4 HOURS PRN, Starting on Sat01/07/25 at 0500, Until Sat01/07/25 at 1723, Pain (See admin instructions), Routine, Post-op - Floor HYDROcodone-acetaminophen 2.5-108 mg/5 mL oral solution 15 mL 15 mL (7.5 mg), Oral, EVERY 4 HOURS PRN, Starting on Sat01/07/25 at 0500, Until Sat01/07/25 at 1723, Pain (See admin instructions), Routine, Post-op - Floor HYDROmorphone (PF) (DILAUDID) injection 0.3 mg 0.3 mg, IV, EVERY 4 HOURS PRN, Starting on Sat01/06/25 at 1435, Until Sat01/07/25 at 1723, Pain (See admin instructions), Routine, Post-op - Floor HYDROmorphone (PF) (DILAUDID) injection 0.6 mg 0.6 mg, IV, EVERY 30 MINUTES PRN, Starting on Sat01/06/25 at 1435, Until Sat01/07/25 at 1723, Pain (See admin instructions), Routine, Post-op - Floor ketorolac (TORADOL) injection 10 mg 10 mg, IV, EVERY 6 HOURS PRN, Starting on Sat01/06/25 at 1435, Until Sat01/07/25 at 1434, Other (See Comment), Cramping or aching pain, Routine, Post-op - Floor magnesium HYDROXIDE (MILK OF MAGNESIA) oral suspension 30 mL 30 mL, Oral, DAILY PRN, Starting on Sat01/06/25 at 1435, Until Sat01/07/25 at 1723, Constipation, Routine, Post-op - Floor metoclopramide (REGLAN) 5 mg/mL injection 10 mg 10 mg, IV, EVERY 6 HOURS PRN, Starting on Sat01/06/25 at 1348, Until Sat01/07/25 at 1723, Nausea/Emesis, Routine, Post-op - Floor 1352 (Given - Provider: Azalea Hernandez RN) morphine 4 mg/mL injection 2 mg 2 mg, IV, EVERY 4 HOURS PRN, Starting on Sat01/06/25 at 1435, Until Sat01/07/25 at 1723, Pain (See admin instructions), Routine, Post-op - Floor ondansetron (ZOFRAN) 4 mg/2 mL injection 4 mg 4 mg, IV, EVERY 6 HOURS PRN, Starting on Sat01/06/25 at 1435, Until Pina 01/07/25 at 1723, Nausea/Emesis, Routine, Post-op - Floor 1705 (Given - Provider: Adela You, RN) 0742 (Given - Provider: Niki Bautista, RN)1329 (Given - Provider: Niki Bautista, ASHLIE) ondansetron (ZOFRAN) 4 mg/2 mL injection 4 mg 4 mg, IV, EVERY 6 HOURS PRN, Starting on Sat01/06/25 at 1435, Until Pina 01/07/25 at 1723, Nausea/Emesis, Routine, Post-op - Floor simethicone (MYLICON) 40 mg/0.6 mL drops 20 mg 20 mg, Oral, EVERY 6 HOURS PRN, Starting on Sat01/06/25 at 1435, Until Pina 01/07/25 at 1723, Gas, Routine, Post-op - Floor sodium chloride 0.9% irrigation solution (CANCELED) INTRA-PROCEDURE PRN, Starting on Sat01/06/25 at 1118, Until Sat01/06/25 at 1157, Routine, Intra-op 1118 (Given - Provider: Nic Yanez MD) Linked Groups Order Group 1: ceFAZolin (ANCEF,KEFZOL) 2,000 mg in sodium chloride 0.9% 50 mL IVPB (MBP) (COMPLETED)Jump to med 2,000 mg, IV, POST-PROCEDURE Q 8 HOURS, 2 doses, First dose on Sat01/06/25 at 1845, Last dose on Pina 01/07/25 at 0245, Routine, Post-op - Floor, Antibiotic Indication: Surgical prophylaxis And metroNIDAZOLE (FLAGYL) IVPB 500 mg (COMPLETED)Jump to med 500 mg, IV, POST-PROCEDURE Q 8 HOURS, 2 doses, First dose on Sat01/06/25 at 1845, Last dose on Pina 01/07/25 at 0245, Routine, Post-op - Floor, Antibiotic Indication: Surgical prophylaxis documented in this encounter
--- OUTSIDE RECORDS SUMMARY | 2025-01-06 10:30 | XMS_ITS | Encounter Summary ---
Author Organization [facility] Address [address] [place] [address] Care Team Providers Care Components Engineer Name Role Phone Unavailable Primary Care Provider Unavailabl e Reason for Visit * Auth/Cert (Routine) Specialty Diagnoses / Procedures Referred By Contmaciel t Referred To Contact Perioperative Diagnoses Morbid (severe) obesity due to excess calories (CMS/HCC) Procedures CA LAPS GSTRC RSTRICTIV PX LONGITUDINAL GASTRECTOMY CA UNLISTED PROCEDURE ABDOMEN PERITONEUM & OMENTUM GASTRECTOMY LONGITUDINAL LAPAROSCOPIC WITH ON Q PAIN PUMP Nic Yanez MD [address] [place] [address] Phone: tel: fax: [facility] Operating Room [address] [place] [phone] Phone: tel: fax: Referral ID Status Reason Start Date Expiration Date Visits Re quested Visits Authorized [id number] 1 1 Encounter Details Date Type Department Care Team (Late st Contact Info) Description 01/06/2025 10:30 AM CDT - 01/06/2025 11:30 AM CDT Surgery [facility] Operating Room [address] [place] [phone] Nic Yanez MD [address] [place], [place] [id number] GASTRECTOMY LONGITUDINAL LAPAROSCOPIC WITH ON Q PAIN PUMP Surgery Details Date/Time Status Location OR Service Patient Class Case Class Case Type Trauma Case? 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 Gender Identity Not on file Sexual Orientation Not on file documented as of this encounter Last Filed Vital Signs Vital Sign Reading Time Taken Comments Blood Pressure 131/81 01/06/2025 8:48 AM CDT Pulse 87 01/06/2025 8:48 AM CDT Temperature 36.7 C (98.1 F) 01/06/2025 8:48 AM CDT Respiratory Rate 18 01/06/2025 8:48 AM CDT Oxygen Saturation 99% 01/06/2025 8:48 AM CDT Inhaled Oxygen Concentration - - Weight 98 kg (216 lb) 01/06/2025 8:48 AM CDT Height 162.6 cm (5' 4 ) 12/25/2024 10:01 AM CDT Body Mass Index 37.33 01/06/2025 2:46 PM CDT documented in this encounter Discharge Instructions * Discharge Instructions* Aisha Hayward, MARVIN - 01/06/2025 3:59 PM CDT MEDICATIONS: Zofran [...] surgeon. Pain ball: Remove as instructed on Thursday, January 09, [address] Yanez [...] for Allergies. fluticasone propionate (FLONASE) 50 mcg/spray [place], Suspension nasal inhaler Administer 2 Sprays in [...] Yanez MD - 01/06/2025 10:36 AM CDT [place] [id number] History and Physical Patient: Renay Stern : [...] Allergies. 01/06/2025Morning fluticasone propionate (FLONASE) 50 mcg/spray [place], Suspension nasal inhaler Administer 2 Sprays in [...] in this encounter Consult Notes * Aisha Hayward DNP - 01/06/2025 3:53 PM CDTAssociated Order(s): IP CONSULT TO HOSPITALIST Hospitalist Consultation Note Patient Name: Renay Stern [id number] Primary Care Doctor: No primary care provider [...] as was overseas serving in the Armed Forces. Reports C- section x 3 along with a tubal in 2018. Denies any other medical needs or concerns at this time. Denies chest pain shortness of breath or GI upset. Denies tobacco drug and alcohol use. Past Medical History: Diagnosis Date Depression Past Surgical History: Procedure Laterality Date HX SECTION x3 HX TUBAL LIGATION CA LAPS GSTRC RSTRICTIV PX LONGITUDINAL GASTRECTOMY N/A 01/06/2025 GASTRECTOMY LONGITUDINAL LAPAROSCOPIC WITH ON Q PAIN PUMP performed by Nic Yanez MD at [facility] Current Medications: Medications Prior to Admission Medication Sig Dispense Refill Last Dose/Taking cetirizine (ZyrTEC) 10 mg tablet Take 10 mg by mouth 1 time daily as needed for Allergies. 01/06/2025Morning fluticasone propionate (FLONASE) 50 mcg/spray [place], Suspension nasal inhaler Administer 2 Sprays in [...] Clear Clear Labs reviewed on chart by continuity writer done prior to arrival Assessment:PLAN 1. [...] coordination of care. Thank you for consulting [facility]. We will gladly follow the patient throughout [...] - 01/06/2025 11:47 AM CDT Renay Stern [id number] 01/06/2025 PRE OP DIAGNOSES: Morbid obesity with [...] wall catheters x2 SURGEON: Nic Yanez MD CORE COMPOSER MACHINE TENDER: None ANESTHESIA: GETA ESTIMATED BLOOD LOSS IN MLS: 50 cc COMPLICATIONS: None SPECIMEN: None PREOPERATIVE NOTE: The contemplated operative procedure, risks, benefits and alternatives to this procedure have been discussed with this patient and/or legal environmental marketing representative. The patient and/or legal environmental marketing representative acknowledge(s) understanding of the above and [...] PROCEDURE Enter at the main entrance at [facility] and go to the registration desk. [...] legal papers (guardianship papers, Durable Power of Refuge Worker), photo ID and insurance cards DISCHARGE If [...] if needed fluticasone propionate (FLONASE) 50 mcg/spray [place], Suspension nasal inhaler May use am of surgeryif needed IF YOU HAVE QUESTIONS: Call [phone] from 8:00 a.m. To 4:30 p.m. Saturday through Saturday. If you need to cancel day of procedure or have questions day of procedure, you can call [phone], 05:30 am-2:00 pm Saturday through Saturday (The above instructions have been discussed with the patient or their environmental marketing representative and they have voiced understanding) documented [...] prior to the admission/surgery. CHARIS Brian, RN, Game Programer Lisa Hardy Care Management * Care Plan - Francisca [...] Hi RN - 01/07/2025 6:21 AM CDT [facility] Adult Intravascular Catheter Flush Protocol [facility] Approved by: [facility] Chief Nursing Officers, [facility] Medical Staff Services, [facility] [place], [facility] Pharmacy and Therapeutics Committee Approval Date: 12/17/2024 [...] Hour One Blood administration and vital signs HOME PERFORMANCE CONSULTANT medication administration Per nurse's discretion based on patient's condition. Clinical [place] Withdrawal Assessment (CIWA) patients Clinical Opiate Withdrawal [...] denies nausea. * Care Plan - Chang Barry, RN - 01/06/2025 8:49 AM CDT Knowledge [...] METABOLIC PANEL Routine 01/07/2025 5:59 AM CDT CA LAPS GSTRC RSTRICTIV PX LONGITUDINAL GASTRECTOMY 01/06/2025 10:30 AM CDT Morbid (severe) obesity due to excess calories ([facility]) Case Notes ON Q PAIN PUMP CODE 18 5-29-25rf HCG QUALITATIVE, URINE Stat 01/06/2025 8:57 AM CDT documented in this encounter Results * (ABNORMAL) BASIC METABOLIC PANEL (01/07/2025 5:59 AM CDT) SODIUM 137 136 - 145 mmol/L 01/07/2025 7:06 AM CDT [facility] POTASSIUM 3.8 3.5 - 5.1 mmol/L 01/07/2025 7:06 AM CDT [facility] CHLORIDE 105 98 - 107 mmol/L 01/07/2025 7:06 AM CDT [facility] CO2 17(L) 22 - 29 mmol/L 01/07/2025 7:06 AM CDT [facility] CALCIUM 8.5(L) 8.6 - 10.0 mg/dL 01/07/2025 7:06 AM [facility] BUN 4(L) 6 - 20 mg/dL 01/07/2025 7:06 AM [facility] CREATININE 0.67 0.51 - 0.95 mg/dL 01/07/2025 7:06 AM [facility] GLUCOSE 129(H) 74 - 99 mg/dL 01/07/2025 7:06 AM [facility] GFR >60 >=60 mL/min/1.7 3 sq meter 01/07/2025 7:06 AM [facility] Comment:eGFR calculated with 2020 CKD-EPI equation. Vegetarian diet, extremely high or low muscle mass, and may affect results. Cystatin C with Glomerular Filtration Rate is a suitable alternative for these patients. ANION GAP 15 5 - 15 mmol/L 01/07/2025 7:06 AM [facility] Blood Venipuncture / Unknown 01/07/2025 5:59 AM CDT 01/07/2025 6:37 AM CDT us Nic Yanez MD CHEMISTRY ORDERABLES Final Resul t [facility] CLIA # [id number] [address] [place] [id number] * (ABNORMAL) CBC WITHOUT DIFFERENTIAL (01/07/2025 5:59 AM CDT) [facility] WBC 10.0 4.0 - 11.0 K/uL 01/07/2025 6:30 AM [facility] RBC 4.20 4.20 - 5.40 M/uL 01/07/2025 6:30 AM [facility] HEMOGLOBIN 11.7(L) 11.9 - 15.1 g/dL 01/07/2025 6:30 AM [facility] HEMATOCRIT 36.0(L) 38.0 - 47.0 % 01/07/2025 6:30 AM [facility] MCV 85.7 80.0 - 98.0 fL 01/07/2025 6:30 AM CDT [facility] MCH 27.9 26.0 - 34.0 pg 01/07/2025 6:30 AM CDT [facility] MCHC 32.5 31.0 - 37.0 g/dL 01/07/2025 6:30 AM CDT [facility] PLATELETS 224 150 - 400 K/uL 01/07/2025 6:30 AM CDT [facility] MPV 11.5 8.5 - 12.5 fL 01/07/2025 6:30 AM CDT [facility] RDW 13.4 11.5 - 14.5 % 01/07/2025 6:30 AM CDT [facility] RDW-STDEV 41.9 34.0 - 54.0 fL 01/07/2025 6:30 AM CDT [facility] Blood Venipuncture / Unknown 01/07/2025 5:59 AM CDT 01/07/2025 6:27 AM CDT us Nic Yanez MD HEMATOLOGY ORDERABLES Final Resu lt [facility] CLIA # [id number] [address] [place] [address] * HCG QUALITATIVE, URINE (01/06/2025 8:57 AM CDT) HCG QUAL URINE Negative Negative 01/06/2025 9:06 AM CDT [facility] COLOR UA Yellow Pale to Dark Yellow 01/06/2025 9:06 AM CDT [facility] UA Clear Clear 01/06/2025 9:06 AM CDT [facility] Urine URINE SPECIMEN OBTAINED BY CLEAN CATCH PROCEDURE / Unknown Collection / Unknown 01/06/2025 8:57 AM CDT 01/06/2025 9:02 AM CDT Narrative [facility] - 01/06/2025 9:06 AM CDT hCG sensitive to as little as 20 mIU/mL for urine us Nic Yanez MD URINE ORDERABLES Final Result [facility] # [id number] [address] [place] [address] documented in this encounter Visit Diagnoses Diagnosis Post-op pain Other acute postoperative pain Morbid (severe) obesity due to excess calories (CMS/HCC) documented in this encounter Administered Medications Inactive Administered Medications - up to 3 most recent administrations Medication Order MAR Action Action Date Dose Rate Site BUPivacaine PF (SENSORCAINE MPF) 5 mg/mL (0.5%) 270 mL single fixed rate On-Q pump Infiltration, CONTINUOUS, Starting on Sat01/06/25 at 1030, Until Sat01/07/25 at 1723, 270 mL, Routine, Pre-op, PUMP USE: Incisional Infiltration, FILL CAPACITY: 270-335 mL, LUMEN QTY: Dual Lumen, RATE: ALL OPTIONS EXCEED MAX RECOMMENDED RATE: EXCEED MAX RATE, SPECIFY RATE: 2 mL/hr/lumen (4 mL/hr total) New Bag 01/06/2025 12:00 PM CDT 4 mL/hr 4 mL/hr BUPivacaine PF (SENSORCAINE MPF) 5 mg/mL (0.5%) injection INTRA-PROCEDURE PRN, Starting on Sat01/06/25 at 1119, Until Sat01/06/25 at 1157, Routine, Intra-op Given 01/06/2025 11:19 AM CDT 10 mL Operative Site famotidine PF (PEPCID) 20 mg/2 mL injection [...] 4:33 AM CDT 5,000 Units Abdominal Tissue metoclopramide (REGLAN) 5 mg/mL injection 10 mg 10 mg, IV, EVERY 6 HOURS PRN, Starting on Sat01/06/25 at 1348, Until Pina 01/07/25 at 1723, Nausea/Emesis, Routine, Post-op - Floor Given 01/06/2025 1:52 PM CDT 10 mg naloxone (NARCAN) 0.4 mg/mL injection 0.1-0.4 mg 0.1-0.4 mg, IV, SEE ADMIN INSTRUCTIONS, Starting on Sat01/06/25 at 0958, Until [place] 01/07/25 at 1723, Routine, PACU ondansetron (ZOFRAN) 4 [...] 01/07/25 at 1723, Routine, Post-op - Floor New Bag 01/07/2025 7:37 AM CDT 150 mL/hr New Bag 01/06/2025 11:11 PM CDT 150 mL/hr New Bag 01/06/2025 2:44 PM CDT 150 mL/hr sodium chloride 0.9% irrigation solution INTRA-PROCEDURE PRN, Starting on Sat01/06/25 at 1118, Until Sat01/06/25 at 1157, Routine, Intra-op Given 01/06/2025 11:18 AM CDT 1,000 mL Oper ative Site documented in this encounter Active and Recently [...] Francisca Hi, ASHLIE)0245 (Stopped - Provider: Francisca Hi RN) ceFAZolin (ANCEF,KEFZOL) vial 2,000 mg (COMPLETED) 2,000 [...] Floor 2030 (Given - Provider: Kami Watkins, RN) 0826 (Given - Provider: Niki Bautista, RN) heparin injection 5,000 Units (COMPLETED) 5,000 Units, subCUT, PRE-PROCEDURE ONCE, 1 dose, Starting on Sat01/06/25 at 0837, Until Sat01/06/25 at 0859, Stat, Pre-op 0859 (Given - Provider: Chang Barry RN) heparin injection 5,000 Units 5,000 Units, subCUT, EVERY 8 HOURS, First dose on Pina 01/07/25 at 0230, Until Discontinued, Routine, Post-op - Floor 0433 (Given - Provid er: Francisca Hi, ASHLIE)1300 (Refused - Provider: Niki Bautista, ASHLIE) lactated ringers bolus solution 2,000 mL (COMPLETED) [...] Post-op - Floor, Antibiotic Indication: Surgical prophylaxis 184 (New Bag - Provider: Adela You RN)1949 (Stopped - Provider: Kami Watkins RN) 0247 (New Bag - Provider: Francisca Hi, ASHLIE)0347 [...] Suarez CRNA)1430 (Stopped - Provider: Azalea Hernandez, ASHLIE) potassium CHLORIDE 20 mEq in dextrose 5 % - sodium chloride 0.45 % 1,000 mL infusion IV, at 150 mL/hr, CONTINUOUS, Starting on Sat01/06/25 at 1445, Until Pina 01/07/25 at 1723, Routine, Post-op - Floor 1444 (New Bag - Provider: Andra Costa, ASHLIE)2311 (New Bag - Provider: Kami Watkins, ASHLIE) 0737 (New Bag - Provider: Niki Bautista, [...] Oral, EVERY 4 HOURS PRN, Starting on Pina 01/07/25 at 0500, Until Pina 01/07/25 at 1723, Pain (See admin instructions), Routine, Post-op - Floor HYDROcodone-acetaminophen 2.5-108 mg/5 mL oral solution 15 mL 15 mL (7.5 mg), Oral, EVERY 4 HOURS PRN, Starting on Pina 01/07/25 at 0500, Until Pina 01/07/25 at 1723, Pain (See admin instructions), Routine, Post-op - Floor HYDROmorphone (PF) (DILAUDID) injection 0.3 mg 0.3 mg, IV, EVERY 4 HOURS PRN, Starting on Sat01/06/25 at 1435, Until Pina 01/07/25 at 1723, Pain (See admin instructions), Routine, Post-op - Floor HYDROmorphone (PF) (DILAUDID) injection 0.6 mg 0.6 mg, IV, EVERY 30 MINUTES PRN, Starting on Sat01/06/25 at 1435, Until Pina 01/07/25 at 1723, Pain (See admin instructions), Routine, Post-op - Floor ketorolac (TORADOL) injection 10 mg 10 mg, IV, EVERY 6 HOURS PRN, Starting on Sat01/06/25 at 1435, Until Pina 01/07/25 at 1434, Other (See Comment), Cramping or aching pain, Routine, Post-op - Floor magnesium HYDROXIDE (MILK OF MAGNESIA) oral suspension 30 mL 30 mL, Oral, DAILY PRN, Starting on Sat01/06/25 at 1435, Until Pina 01/07/25 at 1723, Constipation, Routine, Post-op - Floor [...] at 1435, Until Pina 01/07/25 at 1723, Pain (See admin instructions), Routine, Post-op - Floor ondansetron (ZOFRAN) 4 mg/2 mL injection 4 mg 4 mg, IV, EVERY 6 HOURS PRN, Starting on Sat01/06/25 at 1435, Until [place]ina 01/07/25 at 1723, Nausea/Emesis, Routine, Post-op - Floor 1705 (Given - Provider: Adela You RN) 0742 (Given - Provider: Niki Bautista, ASHLIE)1329 (Given - Provider: Niki Bautista RN) ondansetron (ZOFRAN) 4 mg/2 mL injection 4 [...]
--- OUTSIDE RECORDS SUMMARY | 2025-01-06 10:42 | XMS_ITS | Encounter Summary ---
Author Organization [facility] Address [address] [place] [address] Care Team Providers Care Supervisor Rice Milling Name Role Phone Unavailable Primary Care Provider Unavailabl e Reason for Visit * Auth/Cert (Routine) Specialty Diagnoses / Procedures Referred By Contac t Referred To Contact Perioperative Diagnoses Morbid (severe) obesity due to excess calories (CMS/HCC) Procedures IA LAPS GSTRC RSTRICTIV PX LONGITUDINAL GASTRECTOMY IA UNLISTED PROCEDURE ABDOMEN PERITONEUM & OMENTUM GASTRECTOMY LONGITUDINAL LAPAROSCOPIC WITH ON Q PAIN PUMP Nic Yanez MD [address] [address] Phone: tel: fax: [facility] Operating Room [address] [place] [phone] Phone: tel: fax: Referral ID Status Reason Start Date Expiration Date Visits Re quested Visits Authorized [id number] 1 1 Encounter Details Date Type Department Care Team (Late st Contact Info) Description 01/06/2025 10:42 AM CDT Anesthesia Event [facility] Operating Room [address] [phone] Golden Valencia MD [address] [place] [address] Aby Suarez CRNA [address] [place] [id number] [phone] (work) Anesthesia Record Procedure Summary Procedure Name Responsible Anesthesiologist Anesthesia Start Time Anesthesia Stop Time GASTRECTOMY LONGITUDINAL LAPAROSCOPIC WITH ON Q PAIN PUMP (Abdomen) Golden Valencia MD 01/06/25 1042 01/06/25 1201 Events Date Time Event Comment 01/06/2025 0932 AN Equip Check Anesthesia eq uipment and materials checked in accordance with local policy. 0958 1042 An Start 1042 An Start Data 1042 In Room This event disp lays the In Room time documented in the Surgical Log. Deleting this event will not remove it from the log but will remove it from the Grid and Graph timeline. 1043 Pre-Induction Immediate pre- induction anesthetic assessment performed. Vital signs as noted on graphic. 1045 An Induction 1047 An Intubation 1052 Anesthesia Ready 1108 Procedure Start This event d isplays the Procedure Start time documented in the Surgical Log. Deleting this event will not remove it from the log but will remove it from the Grid and Graph timeline. 1154 Procedure Stop This event di splays the Procedure Stop time documented in the Surgical Log. Deleting this event will not remove it from the log but will remove it from the Grid and Graph timeline. 1155 An Extubation Emergence unev entful Awake, spontaneous respirations. Adequate muscle strength demonstrated Adequate tidal volume. Orapharynx suctioned. Extubated with positive pressure ventilation. 1156 an stop data 1157 Out of Room This event disp lays the Out of Room time documented in the Surgical Log. Deleting this event will not remove it from the log but will remove it from the Grid and Graph timeline. 1201 An Stop 1201 Hand-off to Receiving Clinic alexa Dudley Name Total midazolam PF (VERSED) 1 mg/mL injection 2 mg fentaNYL (SUBLIMAZE) PF 50 mcg/mL injection 100 mcg lidocaine PF (XYLOCAINE MPF) 2% injectio n 3 mL propofol (DIPRIVAN) 10 mg/mL injection 843.55 mg rocuronium (ZEMURON) 10mg/mL injection 5 0 mg dexmedetomidine (PRECEDEX) 100 mcg/mL in jection (FOR ANESTHESIA USE ONLY) 8 mcg ondansetron (ZOFRAN) 4 mg/2 mL injection 4 mg metroNIDAZOLE (FLAGYL) IVPB 500 mg 500 m g diphenhydrAMINE (BENADRYL) 50 mg/mL inje ction 12.5 mg ceFAZolin (ANCEF,KEFZOL) vial 2,000 mg 2 Gram dexmedetomidine (PRECEDEX) i n NS 400 mcg/100 mL infusion 24.5 mcg acetaminophen (OFIRMEV) 1000 mg/100 mL I V 1,000 mg dexamethasone (DECADRON) 4 mg/mL injection 4 mg sugammadex (BRIDION) 100 mg/mL injection 250 mg lactated ringers infusion 2,100 mL * Agents Name O2 Inspired O2 * Blood No blood administrations on file. Lines, Drains, and Airways Type Details Placement Removal Peripheral IV Orientation: Left; Location: Antecubital; Insertion Attempts: 2 (ki); Patient Tolerance: tolerated well 01/06/25 0919 by Ki Barry RN Pain Pump 01/06/25; 1139; 01/06/25; No; On Q; [id number]; Abdomen; marcaine 0.5% 01/06/25 1139 by Leena Martin RN Endotracheal Airway Type: ETT; Size: 7.5 ; Attempts: 1; Verification: Auscultated bilateral breath sounds, Equal chest movement, Continuous waveform capnography 01/06/25 1047 by Aby Suarez, DRIVING SCHOOL INSTRUCTOR 01/06/25 1155 by Aby Suarez, JAZZY Incision 01/06/25; 1117; surgical incision; abdomen; 01/08/25; 0308 01/06/25 1117 by Leena Martin RN 01/08/25 0308 by PROVIDER, DISCHARGE PATIENT documented in this encounter Social History Tobacco Use Types Packs/Day Years Used Date Smoking Tobacco: Never Smokeless Tobacco: Never Alcohol Use Standard Drinks/Week Comments Not Currently [...] on file 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 Gender Identity Not on file Sexual Orientation Not on file documented as of this encounter OR Notes * Anesthesia Postprocedure Evaluation - Golden Valencia MD - 01/06/2025 2:31 PM CDT Phase I Postanesthesia Evaluation Including Modified Lillian Score Patient seen and evaluated: Modified Lillian Score: Score: 10 (01/06/251239) COMMENTS: No apparent Anesthesia related complications RESPIRATORY FUNCTION: Respiration: able to breath and cough freely (01/06/251239) [2=able to breathe and cough freely, 1=dyspnea, limited breathing or tachypnea, 0=apnea or mechanicventilator] O2 Saturation: able to maintain O2 saturation greater than 92% on room air (01/06/251239) [2=able to maintain O2 saturation greater than 92% on room air, 1=needs O2 inhalation to maintain O2 saturation greater than 90%, 0=O2 saturation less than 90% even with O2 supplement] Resp: 20 (01/06/251429)SpO2: 100 % (01/06/251429) CARDIOVASCULAR FUNCTION: Heart Rate: 75 bpm (01/06/251429) BP: 117/73 (01/06/25 142) Circulation: BP within 20% of preanesthetic level (01/06/251239) [2=BP within 20% of preanesthetic level, 1=BP within 20-49% of preanesthetic level, 0=BP within 50%of preanesthetic level] MENTAL STATUS, NEURO, ACTIVITY: PATIENT PARTICIPATION IN EVALUATION:yes Consciousness: fully awake (01/06/251239) [2=fully awake, 1=arousable on calling, 0=not responding] Activity: able to move 4 extremities voluntarily or on command (01/06/251239) [2=able to move 4 extremities voluntarily or on command, 1=able to move 2 extremities voluntarily or on command, 0=unable to move extremities voluntarily or on command] TEMPERATURE: Temp: 36.6 ??C (01/06/251429) PAIN: Pain Rating: Rest: 5 (01/06/251239) Presence of Pain: resting quietly (01/06/250) NAUSEA AND VOMITING: no nausea and no vomiting POSTOPERATIVE HYDRATION: well hydrated Intake/Output Summary (Last 24 hours) at 01/06/2025 1431 Last data filed at 01/06/2025 1353 Gross per 24 hour Intake 2300 ml Output 30 ml Net 2270 ml Golden Valencia MD 01/06/2025 2:31 PM Post Anesthesia Evaluation Vitals: Vitals Value Taken Time BP 117/73 01/06/25 1420 Temp 36.6 ??C 01/06/25 1430 Resp 20 01/06/25 1430 SpO2 100 % 01/06/25 1430 Pulse 78 01/06/25 1430 Heart Rate 75 bpm 01/06/25 1430 Pain Rating: Pain Rating: Rest: 5 (01/06/25 1240) Presence of Pain: resting quietly (01/06/25 1330) Score: FLACC (rest): 0 (01/06/25 1410) Anesthesia Post Evaluation No notable events documented. oGlden Valencia MD * Anesthesia Handoff - Aby Suarez CRNA - 01/06/2025 12:01 PM CDT Post-Anesthetic transfer of care report elements to appropriate post-anesthesia recovery environment completed in accordance with procedure. I completed my handoff to the receiving nurse during which we: 1. Identified the patient 2. Identified the responsible provider 3. Reviewed the pertinent medical history 4. Discussed the surgical course 5. Reviewed intra-op anesthesia management and issues during anesthesia 6. Set expectations for post-procedure period 7. Orders as necessary and appropriate for continuation of care are present in Epic. 8. Allowed opportunity for questions and acknowledgement of understanding. Vital Signs: Vitals Value Taken Time BP 90/49 01/06/25 1158 Temp 35.8 ??C 01/06/25 1158 Resp 22 01/06/25 1158 SpO2 97 % 01/06/25 1158 Pulse 80 01/06/25 1158 Heart Rate 81 bpm 01/06/25 1158 12:01 PM Aby Suarez CRNA * Anesthesia Procedure Notes - Aby Suarez CRNA - 01/06/2025 11:19 AM CDT Associated Order(s): Airway Airway Date/Time: 01/06/2025 10:47 AM Location: OR Plan: routine intubation Patient Identity Confirmed by: Verbally with patient and armband Airway: not difficult Staffing Performed: JAZZY/WOODY Authorized by: Golden Valencia MD Performed by: Aby Suarez CRNA Indications and Patient Condition: Indications for Airway Management: Anesthesia Sedation Level: general anesthesia Preoxygenated: yes Patient Position: Sniffing Mask Difficulty Assessment: 1 - vent by mask Plan to extubate at end of case: Yes Final Airway Details: Final Airway Type: Endotracheal airway ETT Cuffed: Yes Cuff Volume (mL): 7 Technique Used for Successful ETT Placement: Direct laryngoscopy Devices/Methods Used in Placement: Cricoid pressure Blade Type: curved blade Blade Size: 3 Insertion Site: Oral ETT Size (mm): 7.5 Measured from: Teeth ETT to Teeth (cm): 21 Tube secured with: Tape Placement Verified by: auscultation, end tidal CO2 and chest rise Cormack-Lehane Classification: Grade IIa - partial view of glottis Number of Attempts at Approach: 1 Additional Procedure Information: atraumatic and dentition unchanged * Anesthesia Preprocedure Evaluation - Golden Valencia MD - 01/06/2025 9:57 AM CDT Relevant Problems No relevant active problems Anesthesia Evaluation Airway Mallampati: II TM distance: >3 FB Neck ROM: full Dental Comment: No loose dentition Pulmonary breath sounds clear to auscultation (-) recent URI Cardiovascular (-) angina, murmur Rhythm: regular Rate: normal Neuro/Psych (+) psychiatric history GI/Hepatic/Renal (+) bowel prep (liquid diet x 5 days) Comments: 39 yo female presents to OR for GASTRECTOMY LONGITUDINAL LAPAROSCOPIC WITH ON Q PAIN PUMP(Abdomen) - ON Q PAIN PUMP Endo/Other Comments: Body mass index is 37.08 kg/m??. Abdominal Anesthesia History No history of anesthetic complications. Other findings: 12/25/24 01/06/25 1001 0848 BP: 131/81 BP Location: Right arm Patient Position (BP): Sitting Pulse: 87 Resp: 18 Temp: 36.7 ??C TempSrc: Temporal SpO2: 99% Weight: 101.2 kg (223 lb) 98 kg (216 lb) Height: 5' 4 (1.626 m) Anesthesia Plan ASA Final: 2 General Intravenous induction Oral ETT airway maintenance NPO status > 8 hours Anesthetic plan and risks discussed with Patient. Plan discussed with Windshield Repair Technician. Post-op Pain Control Plan to use IV or IM medication for post-op pain control. Plan for postoperative opioid use Smoking Compliance patient did not smoke on day of surgery documented in this encounter Plan of Treatment Not on file documented as of this encounter Procedures Procedure Name Priority Date/Time Associated Diagnosis Comments IA ANES INSERT ENDOTRACHEAL AIRWAY Routine 01/06/2025 10:47 AM CDT documented in this encounter Results * IA ANES INSERT ENDOTRACHEAL AIRWAY (01/06/2025 10:47 AM CDT) Narrative Aby Suarez CRNA - 01/06/2025 10:47 AM CDT Aby Suarez CRNA 01/06/2025 11:20 AM Airway Date/Time: 01/06/2025 10:47 AM Location: OR Plan: routine intubation Patient Identity Confirmed by: Verbally with patient and armband Airway: not difficult Staffing Performed: JAZZY/WOODY Authorized by: Golden Valencia MD Performed by: Aby Suarez CRNA Indications and Patient Condition: Indications for Airway Management: Anesthesia Sedation Level: general anesthesia Preoxygenated: yes Patient Position: Sniffing Mask Difficulty Assessment: 1 - vent by mask Plan to extubate at end of case: Yes Final Airway Details: Final Airway Type: Endotracheal airway ETT Cuffed: Yes Cuff Volume (mL): 7 Technique Used for Successful ETT Placement: Direct laryngoscopy Devices/Methods Used in Placement: Cricoid pressure Blade Type: curved blade Blade Size: 3 Insertion Site: Oral ETT Size (mm): 7.5 Measured from: Teeth ETT to Teeth (cm): 21 Tube secured with: Tape Placement Verified by: auscultation, end tidal CO2 and chest rise Cormack-Lehane Classification: Grade IIa - partial view of glottis Number of Attempts at Approach: 1 Additional Procedure Information: atraumatic and dentition unchanged us Golden Valencia MD PROCEDURE/MINOR SURGICAL ORDER COSTA Final Result documented in this encounter Visit Diagnoses Not on filedocumented in this encounter Administered Medications Inactive Administered Medications - up to 3 most recent administrations Medication Order MAR Action Action Date Dose Rate Site acetaminophen (OFIRMEV) 10 mg/mL injection IV, INTRA-PROCEDURE PRN, Starting on Sat01/06/25 at 1114, Until Sat01/06/25 at 1201, Routine, Anesthesia Intra-op Given 01/06/2025 11:14 AM CDT 1,000 mg ceFAZolin (ANCEF,KEFZOL) vial 2,000 mg 2,000 mg (2 Gram), IV, PRE-PROCEDURE ONCE, 1 dose, Starting on Sat01/06/25 at 0837, Until Sat01/06/25 at 1059, Stat, Pre-op, Antibiotic Indication: Surgical prophylaxis Given 01/06/2025 10:54 AM CDT 2 Grams dexAMETHasone (DECADRON) injection IV, INTRA-PROCEDURE PRN, Starting on Sat01/06/25 at 1121, Until Sat01/06/25 at 1201, Routine, Anesthesia Intra-op Given 01/06/2025 11:21 AM CDT 4 mg dexmedeTOMIDine (PRECEDEX) 100 mcg/mL infusion IV, INTRA-PROCEDURE PRN, Starting on Sat01/06/25 at 1052, Until Sat01/06/25 at 1201, Routine, Anesthesia Intra-op Given 01/06/2025 10:52 AM CDT 8 mcg dexmedeTOMIDine in NS (PRECEDEX) 400 mcg/100 mL (4 mcg/mL) infusion IV, INTRA-PROCEDURE CONTINUOUS PRN, Starting on Sat01/06/25 at 1055, Until Sat01/06/25 at 1201, Anesthesia Intra-op New Bag 01/06/2025 10:55 AM CDT 0.5 mcg/kg/hr 12.25 mL/hr diphenhydrAMINE (BENADRYL) injection IV, INTRA-PROCEDURE PRN, Starting on Sat01/06/25 at 1051, Until Sat01/06/25 at 1201, Routine, Anesthesia Intra-op Given 01/06/2025 10:51 AM CDT 12.5 mg fentaNYL PF (SUBLIMAZE) 50 mcg/mL injection IV, INTRA-PROCEDURE PRN, Starting on Sat01/06/25 at 1044, Until Sat01/06/25 at 1201, Routine, Anesthesia Intra-op Given 01/06/2025 11:09 AM CDT 50 mcg Given 01/06/2025 10:44 AM CDT 50 mcg lactated ringers infusion IV, at 125 mL/hr, PRE-PROCEDURE CONTINUOUS, Starting on Sat01/06/25 at 0845, Until Sat01/06/25 at 1435, Stat, Pre-op New Bag 01/06/2025 11:51 AM CDT New Bag 01/06/2025 10:42 AM CDT lidocaine PF 2% (XYLOCAINE MPF) injection IV, INTRA-PROCEDURE PRN, Starting on Sat01/06/25 at 1045, Until Sat01/06/25 at 1201, Routine, Anesthesia Intra-op Given 01/06/2025 10:45 AM CDT 3 mL metroNIDAZOLE (FLAGYL) IVPB 500 mg 500 mg, IV, PRE-PROCEDURE ONCE, 1 dose, Starting on Sat01/06/25 at 0837, Until Sat01/06/25 at 1150, Stat, Pre-op, Antibiotic Indication: Surgical prophylaxis Given 01/06/2025 10:50 AM CDT 500 mg midazolam (PF) (VERSED) injection IV, INTRA-PROCEDURE PRN, Starting on Sat01/06/25 at 1042, Until Sat01/06/25 at 1201, Routine, Anesthesia Intra-op Given 01/06/2025 10:42 AM CDT 2 mg ondansetron (ZOFRAN) 4 mg/2 mL injection IV, INTRA-PROCEDURE PRN, Starting on Sat01/06/25 at 1140, Until Sat01/06/25 at 1201, Routine, Anesthesia Intra-op Given 01/06/2025 11:40 AM CDT 4 mg propofoL (DIPRIVAN) injection IV, INTRA-PROCEDURE PRN, Starting on Sat01/06/25 at 1045, Until Sat01/06/25 at 1201, Anesthesia Intra-op Rate Change 01/06/2025 11:39 AM CDT 75 mcg/kg/min 44.1 mL/hr Rate Change 01/06/2025 11:35 AM CDT 100 mcg/kg/min 58.8 mL /hr New Bag 01/06/2025 10:46 AM CDT 125 mcg/kg/min 73.5 mL/ hr rocuronium injection IV, INTRA-PROCEDURE PRN, Starting on Sat01/06/25 at 1045, Until Sat01/06/25 at 1201, Routine, Anesthesia Intra-op Given 01/06/2025 11:09 AM CDT 15 mg Given 01/06/2025 10:45 AM CDT 35 mg sugammadex (BRIDION) 100 mg/mL injection IV, INTRA-PROCEDURE PRN, Starting on Sat01/06/25 at 1148, Until Sat01/06/25 at 1201, Routine, Anesthesia Intra-op Given 01/06/2025 11:48 AM CDT 250 mg documented in this encounter
--- OUTSIDE RECORDS SUMMARY | 2025-01-10 11:40 | XMS_ITS | Encounter Summary ---
Author Organization [facility] Address 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
--- OUTSIDE RECORDS SUMMARY | 2025-01-10 11:40 | XMS_ITS | Encounter Summary ---
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
--- OUTSIDE RECORDS SUMMARY | 2025-01-10 11:40 | XMS_ITS | Clinical Summary ---
Author Organization [facility] Address [address] [facility] [address] [address] Phone Care Team Providers Care Optical Laboratory Technician Name Role Phone Unavailable Primary Care Provider Unavailabl e Allergies No known active allergies Medications cetirizine (ZyrTEC) 10 mg tablet Take 10 mg by mouth 1 time daily as needed for Allergies. Active fluticasone propionate (FLONASE) 50 mcg/spray [place], Suspension nasal inhaler Administer 2 Sprays in each nostril 1 time daily as needed for Rhinitis. Active HYDROcodone-ac etaminophen 2.5-108 mg/5 mL SolutionIndica tions:Post-op pain Take 15 mL by mouth every 6 hours as needed for Pain, Severe. Max Daily Amount: 60 mL 300 mL 01/07/20 25 Active ondansetron (ZOFRAN ODT) 4 mg Tablet, Rapid Dissolve Take 1 Tablet (4 mg) by mouth every 8 hours as needed for Nausea. Dissolve tablet on top of tongue, then swallow with saliva. 28 Tablet 5 10:00 AM CDT 01/07/20 25 Active HYDROcodone-ac etaminophen 2.5-108 mg/5 mL Solution Take 15 mL by mouth every 6 hours as needed for severe pain. Max Daily Amount: 60 mL 300 mL 5 10:00 AM CDT 01/07/20 25 025 Discontinued Active Problems Problem Noted Date Diagnosed Date General medical exam 01/06/2025 Obesity (BMI 35.0-39.9 without comorbidity) 03/2025 Postoperative nausea and vomiting 01/06/2025 Postoperative pain 01/06/2025 History of seasonal allergies 01/06/2025 Depression Encounters Date Type Department Care Team Description 01/06/2025 10:42 AM CDT Anesthesia Event [facility] Operating Room [address] [address] [place] [address] Golden Valencia MD Dewig, Debra M, CRNA 01/06/2025 10:30 AM CDT - 01/06/2025 11:30 AM CDT Surgery [facility] Operating Room [address] [place] [address] Nic Yanez MD GASTRECTOMY LONGITUDINAL LAPAROSCOPIC WITH ON Q PAIN PUMP 01/06/2025 8:31 AM CDT - 01/07/2025 3:08 PM CDT Hospital Encounter [facility] Surgical [address] [address] [place] [address] Nic Yanez MD Obesity (BMI 35.0-39.9 without comorbidity) Discharge Disposition: Home or Self Care 01/06/2025 Travel 12/25/2024 Travel 11/27/2024 Abstract [facility] Operating Room [address] [address] [place] [address] Nic Yanez MD from Last 3 Months Social History Tobacco Use Types Packs/Day Years [...] on file 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 Gender Identity Not on file Sexual Orientation Not on file Last Filed Vital Signs Vital Sign Reading [...] Mass Index 37.33 01/06/2025 2:46 PM CDT Plan of Treatment Health Maintenance Due Date Last Done Comments Pre-Diabetes and Diabetes Screening 1983 DTAP/TDAP/TD VACCINES (1 - Tdap) 2002 HEPATITIS B VACCINES (1 of 3 - 19+ 3-dose series) 2002 HPV/Cotest (21-29) 2004 CERVICAL CANCER SCREENING 2013 HPV/Cotest (30-65) 2013 PAP SMEAR 2013 BREAST CANCER SCREENING 2023 INFLUENZA VACCINE (#1) 2025 HPV VACCINES Aged Out No longer eligi ble based on patient's age to complete this topic Medical Devices Implanted Type Area Coin Machine Collector Device Identifier Shelf Expiration Date Model / Serial / Lot Seamguard Endopath 60 [id number] - [id number] Implanted:Qt y: 1 on 01/06/2025 by Nic Yanez MD at [facility] Biological N/A: Stomach [employer] [id number] 10/25/2027 [id number] / / [id number] Seamguard Endopath 60 [id number] - [id number] Implanted:Qt y: 1 on 01/06/2025 by Nic Yanez MD at [facility] Biological N/A: Stomach [employer] [id number] 10/25/2027 [id number] / / [id number] Seamguard Endopath 60 [id number] - [id number] Implanted:Qt y: 1 on 01/06/2025 by Nic Yanez MD at [facility] Biological N/A: Stomach [employer] [id number] 10/25/2027 [id number] [id number] / / [id number] Seamguard Endopath 60 [id number] - [id number] Implanted:Qt y: 1 on 01/06/2025 by Nic Yanez MD at [facility] Biological N/A: Stomach [employer] [id number] 10/25/2027 [id number] / / [id number] Procedures Procedure Name Priority Date/Time Associated Diagnosis Comments BASIC METABOLIC PANEL Routine 01/07/2025 5:59 AM CDT CBC WITHOUT DIFFERENTIAL Routine 01/07/2025 5:59 AM CDT [place] ANES INSERT ENDOTRACHEAL AIRWAY Routine 01/06/2025 10:47 AM CDT NH LAPS GSTRC RSTRICTIV PX LONGITUDINAL GASTRECTOMY 01/06/2025 10:30 AM CDT Morbid (severe) obesity due to excess calories (CMS/HCC) Case Notes ON Q PAIN PUMP CODE 18 5-29-25rf HCG QUALITATIVE, URINE Stat 01/06/2025 8:57 AM CDT from Last 3 Months Results * (ABNORMAL) CBC WITHOUT DIFFERENTIAL (01/07/2025 5:59 AM CDT) Pathologist [facility] WBC 10.0 4.0 - 11.0 K/uL 01/07/2025 6:30 AM CDT [facility] RBC 4.20 4.20 - 5.40 M/uL 01/07/2025 6:30 AM CDT [facility] HEMOGLOBIN 11.7(L) 11.9 - 15.1 g/dL 01/07/2025 6:30 AM CDT [facility] HEMATOCRIT 36.0(L) 38.0 - 47.0 % 01/07/2025 6:30 AM CDT [facility] MCV 85.7 80.0 - 98.0 fL 01/07/2025 6:30 AM CDT [facility] MCH 27.9 26.0 - 34.0 pg 01/07/2025 6:30 AM CDT [facility] MCHC 32.5 31.0 - 37.0 g/dL 01/07/2025 6:30 AM CDT [facility] PLATELETS 224 150 - 400 K/uL 01/07/2025 6:30 AM CDT [facility] MPV 11.5 8.5 - 12.5 fL 01/07/2025 6:30 AM CDT [facility] RDW 13.4 11.5 - 14.5 % 01/07/2025 6:30 AM CDT [facility] RDW-STDEV 41.9 34.0 - 54.0 fL 01/07/2025 6:30 AM CDT [facility] Blood Venipuncture / Unknown 01/07/2025 5:59 AM CDT 01/07/2025 6:27 AM CDT us Nic Yanez MD HEMATOLOGY ORDERABLES Final Resu lt [facility] CLIA # [id number] [address] [place] [address] * (ABNORMAL) BASIC METABOLIC PANEL (01/07/2025 5:59 AM CDT) Pathologist [facility] SODIUM 137 136 - 145 mmol/L 01/07/2025 7:06 AM T [facility] POTASSIUM 3.8 3.5 - 5.1 mmol/L 01/07/2025 7:06 AM [facility] CHLORIDE 105 98 - 107 mmol/L 01/07/2025 7:06 AM T [facility] CO2 17(L) 22 - 29 mmol/L 01/07/2025 7:06 AM [facility] CALCIUM 8.5(L) 8.6 - 10.0 mg/dL 01/07/2025 7:06 AM [facility] BUN 4(L) 6 - 20 mg/dL 01/07/2025 7:06 AM [facility] CREATININE 0.67 0.51 - 0.95 mg/dL 01/07/2025 7:06 AM [facility] GLUCOSE 129(H) 74 - 99 mg/dL 01/07/2025 7:06 AM [facility] GFR >60 >=60 mL/min/1.7 3 sq meter 01/07/2025 7:06 AM [facility] Comment:eGFR calculated with 2020 CKD-EPI equation. Vegetarian diet, extremely high or low muscle mass, and may affect results. Cystatin C with Glomerular Filtration Rate is a suitable alternative for these patients. ANION GAP 15 5 - 15 mmol/L 01/07/2025 7:06 AM [facility] Blood Venipuncture / Unknown 01/07/2025 5:59 AM CDT 01/07/2025 6:37 AM CDT us Nic Yanez MD CHEMISTRY ORDERABLES Final Resul t [facility] CLIA # [id number] [address] [place] [address] * [place] ANES INSERT ENDOTRACHEAL AIRWAY (01/06/2025 10:47 AM [...] MD PROCEDURE/MINOR SURGICAL ORDER COSTA Final Result * HCG QUALITATIVE, URINE (01/06/2025 8:57 AM CDT) HCG QUAL URINE Negative Negative 01/06/2025 9:06 AM CDT [facility] [employer] [facility] COLOR UA Yellow Pale to Dark Yellow 01/06/2025 9:06 AM CDT [facility] [employer] [facility] CLARITY UA Clear Clear 01/06/2025 9:06 AM CDT [facility] [employer] [facility] Urine URINE SPECIMEN OBTAINED BY CLEAN CATCH PROCEDURE / Unknown Collection / Unknown 01/06/2025 8:57 AM CDT 01/06/2025 9:02 AM CDT Narrative [facility] - 01/06/2025 9:06 AM CDT hCG sensitive to as little as 20 mIU/mL for urine us Nic Yanez MD URINE ORDERABLES Final Result [facility] [employer] [facility] CLIA # [id number] [place] [id number] from Last [address] [place] [id number] RX [employer] RX Member Subscriber Plan / Payer (Ef fective 2025-Present) Name:Renay Stern Relation to Subscriber:Self Name:Renay Stern Subscriber ID:Not on file Payer ID:Not on file Group ID:[id number] Type:RX Commercial Address: [address] [facility] [facility] [address] [address] Advance Directives For more information, please contact: [phone] * Full Code (Latest Code Status on File) Date Activated Date Inactivated Comments 01/06/2025 10:00 AM 01/07/2025 5:18 PM * Full Code Date Activated Date Inactivated Comments 01/06/2025 8:37 AM 01/06/2025 10:00 AM
[2025-01-10 12:03] VITALS: BP 123/81; PULSE 77; TEMP 36.7; O2SAT 98
--- NOTE | 2025-01-10 12:06 | USR_ITS ---
PROCEDURE INFORMATION: Exam: US Duplex Left Lower Extremity Veins, Limited Exam date and time: 01/10/2025 1:24 PM Age: 39 years old Clinical indication: Pain; Leg, upper and leg, lower; Left; Additional info: Leg pain TECHNIQUE: Imaging protocol: Real-time duplex ultrasound of the left extremity with 2-D sloan scale, color Doppler flow and spectral waveform analysis including responses to compression and other maneuvers (when performed) with image documentation. Limited exam focused on the left lower extremity veins. COMPARISON: No relevant prior studies available. FINDINGS: Left deep veins: Unremarkable. The common femoral, femoral, proximal profunda femoral and popliteal veins are patent without thrombus. Normal Doppler waveforms. Normal compressibility and/or augmentation response. Visualized posterior tibial and peroneal calf veins appear unremarkable, as well. Superficial veins: Greater saphenous vein at the saphenofemoral junction is patent without thrombus. Soft tissues: Unremarkable. US/[place] [id number] IMPRESSION: No evidence of deep vein thrombosis.
--- NOTE | 2025-01-10 12:35 | W.ED.EXTPRO ---
HPI - Extremity Problem General: Chief complaint: Extremity Problem,Nontraumatic Stated complaint: L leg pain, little swelling Time Seen by Provider: 01/10/25 12:17 Source: patient Mode of arrival: ambulatory Limitations: no limitations History of Present Illness: 39-year-old female states she had a gastric sleeve performed last week states that yesterday she was having some pain in her left lower leg and some mild swelling she is worried about a DVT. She denies any shortness of breath she denies any vomiting diarrhea denies any redness in her leg Associated symptoms: Deny chest pain, fever(s) or rash Related Data Home Medications ?Medication ?Instructions ?Recorded ?Confirmed multivitamin 1 tab PO DAILY 04/27/21 01/10/25 cetirizine 10 mg capsule (Zyrtec) 10 mg PO DAILY PRN allergies 11/21/22 01/10/25 hydrocodone 7.5 mg-acetaminophen 10 ml PO Q6H PRN Pain 01/10/25 01/10/25 325 mg/15 mL oral solution ondansetron 4 mg disintegrating 4 mg PO Q6H PRN Nausea 01/10/25 01/10/25 tablet Allergies Allergy/AdvReac Type Severity Reaction Status Date / Time No Known Allergies Allergy Verified 01/10/25 12:07 Review of Systems Const: Denies: fever(s), chills, body aches or change in appetite ENMT: Denies: throat pain or dental pain Card: Denies: chest pain Resp: Denies: dyspnea GI: Denies: abdominal pain, nausea, vomiting or diarrhea : Denies: dysuria Musc: Reports: extremity pain and extremity swelling; Denies: neck pain or back pain Skin/Breast: Denies: rash Neuro: Denies: headache(s) PFSH ED PFSH: Family History Grandmother Hyperthyroidism Grandfather Stroke Sister TIA (transient ischemic attack) Denies family history of Diabetes CAD (coronary artery disease) Chronic kidney disease (CKD) Lung disease Cancer Hypertension Social History Smoking and tobacco/nicotine status: never used tobacco/nicotine Second hand smoke exposure: No Alcohol intake: current Alcohol intake frequency: holidays/special occasions only Substance/Drug Use: never Physical Exam Const: COMMON NORMALS: no acute distress, patient oriented x3 and healthy appearing HENMT: COMMON NORMALS: normocephalic and atraumatic HEAD & SCALP: normocephalic and atraumatic Eye: COMMON NORMALS: conjunctivae normal CONJUNCTIVA: Yes conjunctivae normal Neck/C-Spine: COMMON NORMALS: full ROM and supple Chest: COMMONS NORMALS: normal inspection of the chest Resp: COMMON NORMALS: normal respiratory effort Cardio: COMMON NORMALS: regular rate RATE: regular rate Extremity: COMMON NORMALS: full ROM NARRATIVE EXTREMITY EXAM: Slight tenderness to left lower calf distal pulses sensation intact Neuro: COMMON NORMALS: patient oriented x3, moves all extremities and no focal motor deficits Psych: COMMON NORMALS: mental status grossly normal, Normal thought process present and cooperative THOUGHT PROCESS: Normal thought process present Skin: COMMON NORMALS: no rashes or lesions noted and no wounds GENERAL SKIN EXAM: no rashes or lesions noted Course Vital Signs: Vital signs: Vital Signs Temperature 98.1 F 01/10/25 12:03 Pulse Rate 77 01/10/25 12:03 Blood Pressure 123/81 01/10/25 12:03 Pulse Oximetry 98 01/10/25 12:03 Oxygen Delivery Me thod Room Air 01/10/25 12:03 MDM - Extremity (Nontraumatic) Medical Decision Making Patient presents here with left leg pain ultrasound showed no DVT exam is benign she stable for discharge follow-up PCP return if worsening. Medical Records I reviewed the patient's medical records. All radiology interpretation(s) finalized by discharge Discharge Plan Discharge Patient Disposition: Home Clinical Impression: Leg pain, left Condition: Stable Prescriptions: No Action multivitamin Tablet 1 tab PO DAILY Zyrtec 10 mg capsule 10 mg PO DAILY PRN (Reason: allergies) ondansetron 4 mg tablet,disintegrating 4 mg PO Q6H PRN (Reason: Nausea) hydrocodone-acetaminophen 7.5-325 mg/15 mL solution 10 ml PO Q6H PRN (Reason: Pain) Discharge Orders: Discharge ED (Routine); Ordered 01/10/25 Ordered By: Su Beebe Referrals: Ewelina Roy, CASE TECHNICIAN [Primary Care Provider, Nurse Practitioner] - 4-7 days Discharge Diet: Advance as tolerated Discharge Activity: Resume usual activity Patient Instructions: Leg Pain (ED) Print Language: Hungarian Coding Level of Care Code ED Warehouse Lead for Edwina Jensen
[2025-01-10 13:54] VITALS: BP 124/76; PULSE 81; O2SAT 98
== END 2025-01-10 13:56 | disposition home or self-care (01) ==
PROVIDERS: Emergency Provider Emergency Medicine; PCP Nurse Practitioner
DX: M79.605 Pain in left leg (principal); Z98.84 Bariatric surgery status
CPT/HCPCS: 93971; 99284